=== PATIENT | female | born 1990 | race Caucasian/White ===

== ENCOUNTER → 2018-04-22 16:28 | Outpatient (CLI) | payer OTHER, SELFPAY | PROVIDERS: Visit Provider Family Medicine | DX: Z36.9 Encounter for antenatal screening, unspecified (principal); Z3A.33 33 weeks gestation of pregnancy | CPT/HCPCS: 87086 ==

== ENCOUNTER → 2018-05-07 17:07 | Outpatient (CLI) | payer OTHER, SELFPAY ==
[2018-05-08 14:08] LABS: Strep Grp B PCR NEG for Grp B Strep
== END ==
PROVIDERS: Visit Provider Family Medicine
DX: Z3A.35 35 weeks gestation of pregnancy (principal)
CPT/HCPCS: 87653

== ENCOUNTER 2018-06-07 09:36 | Inpatient (IN) | payer OTHER, SELFPAY ==
[2018-06-07] MEDS: fentaNYL 100 MCG/2 ML INJ IV ×2 (10:45→11:45)
[2018-06-07] MEDS: LACTATED RINGERS 1,000 ML 100 ML IV (10:50)
[2018-06-07 11:24] LABS: Add Manual Diff / Slide Review NO; Basophils Percent Auto 0.2 % (0-2); Eosinophils Percent Auto 0.6 % (2-4); Hematocrit 35.2 % (36-46); Hemoglobin 11.6 g/dL (12.0-16.0); Lymphocytes Percent Auto 12.7 % (25-40); Mean Corpuscular Hemoglobin 26.1 PG (26-34); Monocytes Percent Auto 3.9 % (3-14); Neutrophils Absolute Auto 13100 /uL (3000-5900); Neutrophils Percent Auto 82.6 % (50-75); Platelet Count 366 X10^3/uL (150-400); Red Blood Cell Count 4.45 X10^6/uL (4.0-5.2); Red Cell Distribution Width 15.8 % (11.6-14.8); White Blood Cell Count 15.8 X10^3/uL (4.5-11.0)
[2018-06-07 11:32] VITALS: BP 149/87
--- NOTE | 2018-06-07 12:06 | PM.HP.1 ---
History of Present Illness Date Patient Seen: 06/07/18 Time Patient Seen: 12:07 Chief complaint: observation of labor Narrative: Patient is a G1 para 0 patient has an estimated due date of 06/05/2018 consistent with early ultrasound early. That puts patient at 40 weeks and 2 7 stays. Patient states that this morning she woke up at about 530 and began to have spontaneous contractions she was able to go back to sleep and woke up with increasing contractions. Contractions were uncomfortable so she presented to the labor and delivery for. In the last 24 hr. She moves been feeling well she has had no fevers or chills headaches. She has had normal amount of swelling. No visual deficits. She has not been making any fluid. She has had some mucousy discharge. Patient established care at 11 weeks gestational age and transferred from [facility]. Her problems include varicella nonimmune rubella nonimmune obesity ventral septal defect which was being followed by intrauterine neonatology and Cardiology and possible esophageal atresia. Medications during included Celexa 30 mg a day vitamins and Zofran. During her transfer weight was 219 attending weight was 251 lb. labs are as follows. Blood type A negative antibody screen negative hematocrit 39.2 12.9 HIV negative Pap test within normal limits varicella nonimmune 1st trimester aneuploidy screen negative cell free DNA negative. 1 hr glucose 148 GBS is negative. Patient had follow-up down and at maternal Medicine for evaluation of the heart. They cannot rule out a ventral septal defect patient has a family history as well as esophageal atresia. They could not rule this as well. Patient's past medical history includes history of depression but no history of thyroid problems high blood pressure heart or kidney problems or diabetes. Patient History Family & Social History Tobacco & Substance use: Smoking Status Never smoker Meds Home Medications Medication Instructions Recorded Confirmed Type metoclopramide HCl 10 mg PO BIDP PRN 06/07/18 History Allergies Allergy/AdvReac Type Severity Reaction Status Date / Time No Known Drug Allergies Allergy Unverified 03/24/18 09:17 Exam Vital Signs (past 8 hours): - 06/07/18 11:32 Blood Pressure 149/87 H Narrative Exam Narrative: . General: Alert no apparent distress. Affect is appropriate. Shari it is uncomfortable. HEENT: Neck is supple without lymphadenopathy pupils equal round and reactive. Cardio: S1-S2 regular rate and rhythm. Respiratory: Lungs clear to auscultation. Abdomen: Gravid. Extremities: Normal deep tendon reflexes trace edema. [place]: Contractions every 3-5 minutes heart tones: heart tones 130 strip is reactive Vaginal exam 8 cm 90% effaced and 0 station Objective Labs Result Diagrams: 06/07/18 10:50 Labs: Laboratory Results - last 24 hr 06/07/18 10:50 WBC 15.8 H RBC 4.45 Hgb 11.6 L Hct 35.2 L MCV 79.0 L MCH 26.1 MCHC 33.0 RDW 15.8 H Plt Count 366 Neut % (Auto) 82.6 H Lymph % (Auto) 12.7 L [place] % (Auto) 3.9 Eos % (Auto) 0.6 L Baso % (Auto) 0.2 Neut # (Auto) 79754 H Assessment & Plan Plan: Assessment/Plan Narrative: 28-year-old G1 para 0 at 40 and 2 weeks gestational age in active labor. Reviewed records. Begin routine care. Orders are written for admission to labor and delivery floor. Epidural anesthesia as requested by the patient. Under go amniotomy. Patient's it in active labor and having good cervical change at this point. Category 1 heart tracing. GBS status is negative. Mom is mildly obese and had a slightly elevated fasting blood glucose and has been watching her diet.
--- NOTE | 2018-06-07 12:11 | P.HP_ITS ---
History of Present Illness Date Patient Seen: 06/07/18 Time Patient Seen: 12:07 Chief complaint: observation of labor Narrative: Patient is a G1 para 0 patient has an estimated due date of 2017 consistent with early ultrasound early. That puts patient at 40 weeks and 2 7 stays. Patient states that this morning she woke up at about 530 and began to have spontaneous contractions she was able to go back to sleep and woke up with increasing contractions. Contractions were uncomfortable so she presented to the labor and delivery for. In the last 24 hr. She moves been feeling well she has had no fevers or chills headaches. She has had normal amount of swelling. No visual deficits. She has not been making any fluid. She has had some mucousy discharge. Patient established care at 11 weeks gestational age and transferred from [facility]. Her problems include varicella nonimmune rubella nonimmune obesity ventral septal defect which was being followed by intrauterine neonatology and Cardiology and possible esophageal atresia. Medications during included Celexa 30 mg a day vitamins and Zofran. During her transfer weight was 219 attending weight was 251 lb. labs are as follows. Blood type A negative antibody screen negative hematocrit 39.2 12.9 HIV negative Pap test within normal limits varicella nonimmune 1st trimester aneuploidy screen negative cell free DNA negative. 1 hr glucose 148 GBS is negative. Patient had follow-up down and at maternal Medicine for evaluation of the heart. They cannot rule out a ventral septal defect patient has a family history as well as esophageal atresia. They could not rule this as well. Patient's past medical history includes history of depression but no history of thyroid problems high blood pressure heart or kidney problems or diabetes. Patient History Family & Social History Tobacco & Substance use: Smoking Status Never smoker Meds Home Medications Medication Instructions Recorded Confirmed Type metoclopramide HCl 10 mg PO BIDP PRN 06/07/18 History Allergies Allergy/AdvReac Type Severity Reaction Status Date / Time No Known Drug Allergies Allergy Unverified 03/24/18 09:17 Exam Vital Signs (past 8 hours): - 06/07/18 11:32 Blood Pressure 149/87 H Narrative Exam Narrative: . General: Alert no apparent distress. Affect is appropriate. Shari it is uncomfortable. HEENT: Neck is supple without lymphadenopathy pupils equal round and reactive. Cardio: S1-S2 regular rate and rhythm. Respiratory: Lungs clear to auscultation. Abdomen: Gravid. Extremities: Normal deep tendon reflexes trace edema. [place]: Contractions every 3-5 minutes heart tones: heart tones 130 strip is reactive Vaginal exam 8 cm 90% effaced and 0 station Objective Labs Result Diagrams: 06/07/18 10:50 Labs: Laboratory Results - last 24 hr 06/07/18 10:50 WBC 15.8 H RBC 4.45 Hgb 11.6 L Hct 35.2 L MCV 79.0 L MCH 26.1 MCHC 33.0 RDW 15.8 H Plt Count 366 Neut % (Auto) 82.6 H Lymph % (Auto) 12.7 L [place] % (Auto) 3.9 Eos % (Auto) 0.6 L Baso % (Auto) 0.2 Neut # (Auto) 61297 H Assessment & Plan Plan: Assessment/Plan Narrative: 28-year-old G1 para 0 at 40 and 2 weeks gestational age in active labor. Reviewed records. Begin routine care. Orders are written for admission to labor and delivery floor. Epidural anesthesia as requested by the patient. Under go amniotomy. Patient's it in active labor and having good cervical change at this point. Category 1 heart tracing. GBS status is negative. Mom is mildly obese and had a slightly elevated fasting blood glucose and has been watching her diet.
--- NOTE | 2018-06-07 17:46 | P.PCNOB_ITS ---
Delivery date: 06/07/18 Estimated blood loss (mL): 250 Anesthesia type: Spinal Narrative: Stage I of labor. Approximately 8 hr. During stage I of labor. Patient had good progression of her labor. She had automatic rupture of amniotic fluid. It was clear. She made good progress until complete. During stage I of labor heart tones were reassuring. She was farshad adequately without Pitocin augmentation. heart tones were category 1 during the stage I of labor. Patient received an epidural for pain relief. And eventually had conversion to a spinal because she was intolerant of pushing due to the pain. Patient had adequate pain relief with the spinal. Blood pressure was mildly elevated during stage I up to 140s. No maternal fever. Stage II of labor. Approximately an hour and a half During the stage of labor the patient's Tiffany was not working very well. heart tones were auscultated multiple times and near the end of stage I every 5 min. heart tones were reassuring throughout stage II of labor. And no appreciable decelerations were found. Patient made good progress through stage II of labor. Patient then delivered a viable male infant over intact perineum. The delivery of the head there was no nuchal cord. There is no difficulty delivering the shoulders and the body. Baby was then placed on the mother's abdomen. The cord was then cut and transected. 10 units of IM Pitocin was given. Baby was vigorous. Stage III of labor. Attention was taken to the vagina. Where there was a second-degree vaginal perineal laceration which was repaired with 2 0 chromic suture without difficulty. She had delivery of an intact placenta with three- vessel cord. Patient had 250 cc of blood loss. Patient's uterine was firm. Vital signs were stable for afterwards. Baby was resting comfortably.
[2018-06-07] MEDS: IBUPROFEN 600 MG TABLET PO (21:29)
[2018-06-08] MEDS: IBUPROFEN 600 MG TABLET PO ×3 (06:11→18:57)
[2018-06-08 06:51] LABS: Hematocrit 29.7 % (36-46); Hemoglobin 9.7 g/dL (12.0-16.0)
--- NOTE | 2018-06-08 08:45 | P.PN_ITS ---
Subjective Date Patient Seen: 06/08/18 Time Patient Seen: 08:43 Interval history: Patient did well over night. Complaints of fatigue and tiredness. Some mild uterine cramping but it is relieved with ibuprofen. She says her bleeding is well controlled. And not much. She is up out of bed and ambulating. No difficulty with urination. No bowel movement yet. Breast- feeding is going okay but with some difficulty with latching using a nipple shield. Vital signs have been stable. Exam Vital Signs (past 8 hours): Narrative Exam Narrative: General: Alert no apparent distress. Affect is appropriate. Shari it is uncomfortable. HEENT: Neck is supple without lymphadenopathy pupils equal round and reactive. Cardio: S1-S2 regular rate and rhythm. Respiratory: Lungs clear to auscultation. Abdomen: Uterus firm. Extremities: Normal deep tendon reflexes trace edema. Objective Labs Result Diagrams: 06/08/18 06:25 Labs: Laboratory Results - last 24 hr 06/07/18 06/07/18 06/08/18 10:50 10:50 06:25 WBC 15.8 H RBC 4.45 Hgb 11.6 L 9.7 L Hct 35.2 L 29.7 L MCV 79.0 L MCH 26.1 MCHC 33.0 RDW 15.8 H Plt Count 366 Neut % (Auto) 82.6 H Lymph % (Auto) 12.7 L [place] % (Auto) 3.9 Eos % (Auto) 0.6 L Baso % (Auto) 0.2 Neut # (Auto) 05308 H Blood Type A Negative Antibody Screen Negative Maternal Bleed 06/08/18 06:25 WBC RBC Hgb Hct MCV MCH MCHC RDW Plt Count Neut % (Auto) Lymph % (Auto) [place] % (Auto) Eos % (Auto) Baso % (Auto) Neut # (Auto) Blood Type Antibody Screen Maternal Bleed Negative Assessment & Plan Plan: Assessment/Plan Narrative: day 1. Status post term male infant. Doing well. Eating breast- feeding is okay. Positive urination. Bleeding is under control. Discussed control options. Discussed breast-feeding and possible tongue tie in the . Reviewed testing with mom today. Continue with vitamins ibuprofen ambulation discharge tomorrow
[2018-06-08] MEDS: LANOLIN OINT 7 GM 1 APPLIC TOP (12:38)
[2018-06-08] MEDS: HYDROCODONE/ACET 5/325 TABLET 1 TAB PO (15:45)
[2018-06-08] MEDS: RHO(D) IMMUNE GLOBULIN 1,500 UNIT SYRINGE 1500 UNIT IM (15:46)
[2018-06-08] MEDS: DOCUSATE 250 MG CAPSULE PO (18:58)
[2018-06-09] MEDS: IBUPROFEN 600 MG TABLET PO ×2 (01:47→08:21)
--- NOTE | 2018-06-09 08:01 | PM.DS.1 ---
History of Present Illness Chief complaint: observation of labor Narrative: Patient is a G1 para 0 patient has an estimated due date of 06/05/2018 consistent with early ultrasound early. That puts patient at 40 weeks and 2 7 stays. Patient states that this morning she woke up at about 530 and began to have spontaneous contractions she was able to go back to sleep and woke up with increasing contractions. Contractions were uncomfortable so she presented to the labor and delivery for. In the last 24 hr. She moves been feeling well she has had no fevers or chills headaches. She has had normal amount of swelling. No visual deficits. She has not been making any fluid. She has had some mucousy discharge. Patient established care at 11 weeks gestational age and transferred from [facility]. Her problems include varicella nonimmune rubella nonimmune obesity ventral septal defect which was being followed by intrauterine neonatology and Cardiology and possible esophageal atresia. Medications during included Celexa 30 mg a day vitamins and Zofran. During her transfer weight was 219 attending weight was 251 lb. labs are as follows. Blood type A negative antibody screen negative hematocrit 39.2 12.9 HIV negative Pap test within normal limits varicella nonimmune 1st trimester aneuploidy screen negative cell free DNA negative. 1 hr glucose 148 GBS is negative. Patient had follow-up down and at maternal Medicine for evaluation of the heart. They cannot rule out a ventral septal defect patient has a family history as well as esophageal atresia. They could not rule this as well. Patient's past medical history includes history of depression but no history of thyroid problems high blood pressure heart or kidney problems or diabetes. Discharge Providers Date of admission: 06/07/18 10:06 Consults: 06/07/18 21:20 Consult to Rental Car Deliverer Routine Comment: Discharge provider: Joseph Spring MD Summary Discharge Diagnosis: Term intrauterine Delivery of viable male infant Repair of second-degree perineal laceration Routine care Hospital Course: Patient was admitted to the hospital in labor. Had gradual progression during labor and delivery of a viable male infant. Repair of a second-degree laceration. Postoperative bleed day 1 pain was well controlled she was tolerating ambulating having normal urination working on breast-feeding vital signs were stable temperature were stable. day 2. Bleeding was well controlled. No signs of significant lower extremity edema blood pressure instability. No signs of respiratory distress and normal heart exam. Temperature and vital signs were stable mom was eating ambulating breast-feeding well Time Spent with Patient Less than 30 minutes Exam Narrative Exam Narrative: Gen.: Good historian HEENT: Pupils equal and reactive. Cardio: [S1 and S2 regular rate and rhythm no appreciable murmurs.] Respiratory: Normal respiratory effort lungs clear Abdomen: Soft nontender obese uterus is firm Extremities: Full range of motion trace edema Objective Labs Result Diagrams: 06/08/18 06:25 Labs: Laboratory Results - last 24 hr 06/08/18 06:25 Maternal Bleed Negative Discharge Plan Discharge Plan Patient Disposition: Home, Self-Care Discharge comment: Home follow up with Dr. Spring in 6 weeks for checkup Discharge Med Rec/Prescriptions Prescriptions: New hydrocodone-acetaminophen 5-325 mg Tablet 1 tab PO Q6-8H PRN (Reason: Pain, Moderate (4-6)) Qty: 20 RF: 0 docusate sodium 250 mg Capsule 250 mg PO DAILY Qty: 30 RF: 0 ibuprofen 600 mg Tablet 600 mg PO Q6HR PRN (Reason: Pain, Mild (1-3)) Qty: 30 RF: 0 Discontinued metoclopramide HCl 10 MG tablet 10 mg PO BIDP PRN (Reason: Nausea) RF: 0 Discharge Data Attending Provider: Joesph Spring Admit Date/Time: 06/07/18 10:06
--- NOTE | 2018-06-09 08:04 | P.DS_ITS ---
History of Present Illness Chief complaint: observation of labor Narrative: Patient is a G1 para 0 patient has an estimated due date of 2017 consistent with early ultrasound early. That puts patient at 40 weeks and 2 7 stays. Patient states that this morning she woke up at about 530 and began to have spontaneous contractions she was able to go back to sleep and woke up with increasing contractions. Contractions were uncomfortable so she presented to the labor and delivery for. In the last 24 hr. She moves been feeling well she has had no fevers or chills headaches. She has had normal amount of swelling. No visual deficits. She has not been making any fluid. She has had some mucousy discharge. Patient established care at 11 weeks gestational age and transferred from [facility]. Her problems include varicella nonimmune rubella nonimmune obesity ventral septal defect which was being followed by intrauterine neonatology and Cardiology and possible esophageal atresia. Medications during included Celexa 30 mg a day vitamins and Zofran. During her transfer weight was 219 attending weight was 251 lb. labs are as follows. Blood type A negative antibody screen negative hematocrit 39.2 12.9 HIV negative Pap test within normal limits varicella nonimmune 1st trimester aneuploidy screen negative cell free DNA negative. 1 hr glucose 148 GBS is negative. Patient had follow-up down and at maternal Medicine for evaluation of the heart. They cannot rule out a ventral septal defect patient has a family history as well as esophageal atresia. They could not rule this as well. Patient's past medical history includes history of depression but no history of thyroid problems high blood pressure heart or kidney problems or diabetes. Discharge Providers Date of admission: 06/07/18 10:06 Consults: 06/07/18 21:20 Consult to Ballet Dancer Routine Comment: Discharge provider: Joseph Spring MD Summary Discharge Diagnosis: Term intrauterine Delivery of viable male Repair of second-degree perineal laceration Routine care Hospital Course: Patient was admitted to the hospital in labor. Had gradual progression during labor and delivery of a viable male . Repair of a second-degree laceration. Postoperative bleed day 1 pain was well controlled she was tolerating ambulating having normal urination working on breast-feeding vital signs were stable temperature were stable. day 2. Bleeding was well controlled. No signs of significant lower extremity edema blood pressure instability. No signs of respiratory distress and normal heart exam. Temperature and vital signs were stable mom was eating ambulating breast-feeding well Time Spent with Patient Less than 30 minutes Exam Narrative Exam Narrative: Gen.: Good historian HEENT: Pupils equal and reactive. Cardio: [S1 and S2 regular rate and rhythm no appreciable murmurs.] Respiratory: Normal respiratory effort lungs clear Abdomen: Soft nontender obese uterus is firm Extremities: Full range of motion trace edema Objective Labs Result Diagrams: 06/08/18 06:25 Labs: Laboratory Results - last 24 hr 06/08/18 06:25 Maternal Bleed Negative Discharge Plan Discharge Plan Patient Disposition: Home, Self-Care Discharge comment: Home follow up with Dr. Spring in 6 weeks for checkup Discharge Med Rec/Prescriptions Prescriptions: New hydrocodone-acetaminophen 5-325 mg Tablet 1 tab PO Q6-8H PRN (Reason: Pain, Moderate (4-6)) Qty: 20 RF: 0 docusate sodium 250 mg Capsule 250 mg PO DAILY Qty: 30 RF: 0 ibuprofen 600 mg Tablet 600 mg PO Q6HR PRN (Reason: Pain, Mild (1-3)) Qty: 30 RF: 0 Discontinued metoclopramide HCl 10 MG tablet 10 mg PO BIDP PRN (Reason: Nausea) RF: 0 Discharge Data Attending Provider: Joseph Spring Admit Date/Time: 06/07/18 10:06
[2018-06-09] MEDS: DOCUSATE 250 MG CAPSULE PO (08:21)
[2018-06-09] MEDS: MEASLES,MUMPS,RUBELLA VACC/PF 0.5 ML VIAL SUBCUT (11:14)
[2018-06-09 17:43] VITALS: BP 149/87; PULSE 99; RESP 16; TEMP 37.2
== END 2018-06-09 12:00 | disposition home or self-care (01) | DRG 775 ==
PROVIDERS: Admitting Provider Family Medicine; Visit Provider Family Medicine
DX: O99.344 Other mental disorders complicating childbirth (principal); Z3A.40 40 weeks gestation of pregnancy; Z37.0 Single live birth; O70.1 Second degree perineal laceration during delivery; F32.9 Major depressive disorder, single episode, unspecified
CPT/HCPCS: 01967; 36415; 59050; 59410; 85014; 85018; 85025; 85461; 86850; 86900; 86901; G0378; G0379; J2790; J3010

== ENCOUNTER → 2018-12-10 10:54 | Outpatient (CLI) | payer OTHER, SELFPAY ==
[2018-12-10 11:27] LABS: Add Manual Diff / Slide Review NO; Basophils Absolute Auto 0 /uL (0-100); Basophils Percent Auto 0.4 % (0-2); Eosinophils Absolute Auto 100 /uL (0-450); Eosinophils Percent Auto 1.1 % (2-4); Hematocrit 38.5 % (36-46); Hemoglobin 12.7 g/dL (12.0-16.0); Lymphocytes Absolute Auto 2300 /uL (1100-4500); Lymphocytes Percent Auto 23.4 % (25-40); Mean Corpuscular Volume 78.7 fL (80-100); Monocytes Absolute Auto 500 /uL (0-900); Monocytes Percent Auto 4.8 % (3-14); Neutrophils Absolute Auto 6800 /uL (1500-7000); Neutrophils Percent Auto 70.3 % (50-75); Platelet Count 413 X10^3/uL (150-400); Red Blood Cell Count 4.89 X10^6/uL (4.0-5.2); Red Cell Distribution Width 16.8 % (11.6-14.8); White Blood Cell Count 9.7 X10^3/uL (4.5-11.0)
[2018-12-10 12:47] LABS: Appearance Urine UA CLEAR; Bilirubin Urine UA NEGATIVE (NEGATIVE); Color Urine UA YELLOW; Glucose Urine UA NEGATIVE (Negative); Ketones Urine UA NEGATIVE (NEGATIVE); Leukocyte Esterase Urine UA NEGATIVE (NEGATIVE); Nitrite Urine UA NEGATIVE (Negative); Occult Blood Urine UA NEGATIVE (Negative); Protein Urine UA NEGATIVE (Negative); Urobilinogen Urine UA 0.2 E.U./dL (0.2); pH Urine UA 7.5 (4.5-8.0)
[2018-12-10 15:37] LABS: Hepatitis B Surface Antigen NEGATIVE s/c (NEGATIVE)
[2018-12-10 15:49] LABS: HIV 1 and 2 Antibody NEGATIVE (NEGATIVE); Hep C Virus Ab w/Reflex Quant NEGATIVE s/c (NEGATIVE)
[2018-12-11 14:10] LABS: HSV 2 IGG AB < 0.90 index (< 0.90); HSV1IGG < 0.90 index (< 0.90)
[2018-12-11 14:13] LABS: Varicella IgG Antibody < 135.00 Index (< 135.00)
[2018-12-12 14:07] LABS: RPR Screen Nonreactive (Nonreactive)
== END ==
PROVIDERS: PCP Family Medicine; Visit Provider Family Medicine
DX: Z34.81 Encounter for supervision of other normal pregnancy, first trimester (principal)
CPT/HCPCS: 36415; 80055; 81003; 86695; 86696; 86703; 86787; 86803; 86850; 86900; 86901; 87077; 87086

== ENCOUNTER → 2019-01-21 16:39 | Outpatient (CLI) | payer OTHER, SELFPAY ==
[2019-02-01 10:43] LABS: AFP, Serum 18.7 ng/mL; Calc Gestational Age 15.3; Cigarette Smoker NOT GIVEN; Donated Egg N; Donor Egg Age NOT GIVEN; Estriol, Free 1.01 ng/mL; Inhibin A, Dimeric 155 pg/mL; Maternal Weight 229 lbs; Number of Fetuses 1; Previous Pregnancy Down Syndro N; hCG, MoM 2.02; hCG, Serum 65.5 IU/mL
== END ==
PROVIDERS: PCP Family Medicine; Visit Provider Family Medicine
DX: Z34.82 Encounter for supervision of other normal pregnancy, second trimester (principal); Z3A.15 15 weeks gestation of pregnancy
CPT/HCPCS: 36415; 82105; 82677; 84702; 86336

== ENCOUNTER → 2019-02-18 08:36 | Outpatient (CLI) | payer OTHER, SELFPAY ==
--- NOTE | 2019-02-18 08:39 | DI.US.S_ITS ---
PROCEDURE: US OB >= 14 WEEKS FETUS INDICATIONS: ANATOMIC SURVEY OUTSIDE/PRIOR DATING DATA: Last menstrual period (LMP): Not provided. LMP-based estimated date of delivery (AFUA): 07/13/19. First dating scan (date and location): 02/18/19. Estimated date of delivery (AFUA) from first dating scan: 07/10/19. TECHNIQUE: Real-time scanning was performed of the fetus, with image documentation and biometric measurements. Endovaginal scanning: No COMPARISON: [facility], , OB >= 14 WEEKS FETUS, 01/21/2019, 16:26. FINDINGS: General: A single living intrauterine gestation is present. Presentation: Vertex. Placenta: Placental position is anterior, without previa. Amniotic fluid index: 14.9 cm, normal range is 5-24 cm. heart rate: 158 beats per minute. Maternal cervical canal: 4.7 cm long. Normal lower limit is 2.5 cm. biometrics: Biparietal diameter: 20 weeks 3 days Head circumference: 19 weeks 5 days Abdominal circumference: 19 weeks 4 days Femur length: 20 weeks 0 days Estimated gestational age from initial scan: 19 weeks 2 days Composite gestational age from present scan: 19 weeks 5 days Estimated weight and percentile: 314 g; 76 percentile Measurement variability for biometric dating: +/- 7 days from 14 weeks to 15 weeks 6 days gestation, +/- 10 days from 16 weeks to 21 weeks 6 days gestation, +/- 2 weeks from 22 weeks to 27 weeks 6 days gestation, +/- 3 weeks for 28 weeks gestation or later. weight reference: 4500 g or EFW >90/95% is considered macrosomia or large for gestational age. EFW <10% is small for gestational age. EFW 5% or less is considered intra-uterine growth restriction. Anatomic survey: Neuro: Ventricles are non-dilated at less than 10 mm. Cisterna magna is normal at 3-11 mm. Cerebellum is normal in size and morphology. Nuchal skin fold: Normal at less than 6 mm between 14-21 weeks gestational age. Face: Not well-seen. Spine: No evidence for spina bifida. Heart: Possible ventricular septal defect noted which is suboptimally visualized. RVOT also not well-seen. Normal LVOT. Diaphragm: Diaphragm is intact. Stomach: Left-sided stomach is present. Kidneys: No hydronephrosis. Normal is less than 5 mm in 2nd trimester, less than 7 mm in 3rd trimester. Cord: 3-vessel cord has orthotopic insertion. Bladder: Normal in size. Extremities: All 4 extremities identified. IMPRESSION: 1. Single living IUP with an estimated sonographic gestational age of approximately 19 weeks and 5 days. Estimated weight is approximately [address] the fetus with the 76th percentile for gestational age. 2. Possible ventricular septal defect which is suboptimally visualized. Tertiary care referral and echocardiography recommended for further assessment of the heart. 3. face and the RVOT are not well visualized on the current study. Followup recommended. Dictated by: Jair SOLOMON Interpreted: Kalin Putnam MD on 02/18/2019 at 14:09 Approved by: Kalin Putnam M.D. on 02/18/2019 at 14:47
== END ==
PROVIDERS: PCP Family Medicine; Visit Provider Family Medicine
DX: Z34.82 Encounter for supervision of other normal pregnancy, second trimester (principal); Z3A.19 19 weeks gestation of pregnancy
CPT/HCPCS: 76811

== ENCOUNTER → 2019-04-06 11:58 | Outpatient (CLI) | payer OTHER, SELFPAY ==
[2019-04-06 13:47] LABS: Hematocrit 33.4 % (36-46); Hemoglobin 10.9 g/dL (12.0-16.0)
[2019-04-06 14:38] LABS: GTT (PREG) 1 Hour PP 50gm Dose 163 mg/dL (76-139)
== END ==
PROVIDERS: PCP Family Medicine; Visit Provider Family Medicine
DX: Z34.82 Encounter for supervision of other normal pregnancy, second trimester (principal); Z3A.23 23 weeks gestation of pregnancy
CPT/HCPCS: 36415; 82950; 85014; 85018; 86850

== ENCOUNTER → 2019-04-09 08:42 | Outpatient (CLI) | payer OTHER, SELFPAY ==
[2019-04-09 13:04] LABS: Glucose Tol Interp,Gestational INTERPRETATION
[2019-04-09 14:31] LABS: Glucose 3 Hour Gest 130 mg/dL (76-140)
[2019-04-09 14:32] LABS: Glucose 2 Hour Gest 143 mg/dL (76-155)
[2019-04-09 14:46] LABS: Glucose Fasting Gestational 79 mg/dL (76-95)
[2019-04-09 14:47] LABS: Glucose 1 Hour Gest 175 mg/dL (76-180)
== END ==
PROVIDERS: PCP Family Medicine; Visit Provider Family Medicine
DX: R73.09 Other abnormal glucose (principal)
CPT/HCPCS: 36415; 82951; 82952

== ENCOUNTER → 2019-04-16 12:23 | Outpatient (CLI) | payer OTHER, SELFPAY | PROVIDERS: PCP Family Medicine; Visit Provider Family Medicine | DX: Z34.02 Encounter for supervision of normal first pregnancy, second trimester (principal); Z3A.27 27 weeks gestation of pregnancy | CPT/HCPCS: 87086 ==

== ENCOUNTER → 2019-05-06 16:29 | Outpatient (CLI) | payer OTHER, SELFPAY | PROVIDERS: PCP Family Medicine; Visit Provider Family Medicine | DX: Z34.83 Encounter for supervision of other normal pregnancy, third trimester (principal); Z3A.30 30 weeks gestation of pregnancy | CPT/HCPCS: 87086 ==

== ENCOUNTER → 2019-05-19 16:58 | Outpatient (CLI) | payer OTHER, SELFPAY | PROVIDERS: PCP Family Medicine; Visit Provider Family Medicine | DX: Z34.83 Encounter for supervision of other normal pregnancy, third trimester (principal); Z3A.32 32 weeks gestation of pregnancy | CPT/HCPCS: 87086 ==

== ENCOUNTER 2019-06-03 14:52 | Outpatient (CLI) | payer OTHER, SELFPAY | END 2019-06-03 16:01 | disposition home or self-care (01) | LOC: LABOR 14:57 → OB 06-04 12:01 | PROVIDERS: PCP Family Medicine; Visit Provider Family Medicine | DX: Z34.93 Encounter for supervision of normal pregnancy, unspecified, third trimester (principal); Z3A.35 35 weeks gestation of pregnancy | CPT/HCPCS: 59025; G0378; G0379 ==

== ENCOUNTER → 2019-06-08 09:41 | Outpatient (CLI) | payer OTHER, SELFPAY ==
[2019-06-09 07:53] LABS: Strep Grp B PCR NEG for Grp B Strep
== END ==
PROVIDERS: PCP Family Medicine; Visit Provider Family Medicine
DX: Z34.83 Encounter for supervision of other normal pregnancy, third trimester (principal); Z3A.35 35 weeks gestation of pregnancy
CPT/HCPCS: 87653

== ENCOUNTER 2019-06-10 08:52 | Outpatient (CLI) | payer OTHER, SELFPAY ==
--- NOTE | 2019-06-10 09:51 | PM.OBTRLD ---
Visit Information Visit Information Date of evaluation: 06/10/19 Primary OB Provider: Joseph Spring On-call OB Provider: Bette Garber Reason for Evaluation: Yes non-stress test non-stress test reason: hypertension/pre-eclampsia Vital Signs Vital Signs: Blood pressure 111/63, temperature 36?, pulse of 91 PFSH Social History marital status: unmarried,living together number of children: 1 household members: significant other and children (1 ) Smoking Status: Never smoker alcohol intake: current (ON OCCASION ) substance use type: does not use Social History marital status: unmarried,living together number of children: 1 household members: significant other and children (1 ) Smoking Status: Never smoker alcohol intake: current (ON OCCASION ) substance use type: does not use Evaluation Evaluation Baseline heart rate: 130 Variability: Moderate (11-25) monitor accelerations: Present monitor decelerations: Absent Contraction Frequency (minutes): 0 Diagnosis, Plan/Disposition Final Diagnosis (1) Gestational diabetes, diet controlled: Current Visit: Yes Status: Acute (2) Gestational hypertension: Current Visit: Yes Status: Acute (3) 35 weeks gestation of : Current Visit: Yes Status: Acute Plan/Disposition Plan: Reactive nonstress with normal blood pressure and patient states blood sugar is below 100. Continue routine OB appointments and nonstress tests OB Disposition: home
--- NOTE | 2019-06-10 09:54 | P.TNLD_ITS ---
Visit Information Visit Information Date of evaluation: 06/10/19 Primary OB Provider: Joseph Spring On-call OB Provider: Bette Garber Reason for Evaluation: Yes non-stress test non-stress test reason: hyper tension/pre-eclampsia Vital Signs Vital Signs: Blood pressure 111/63, temperature 36?, pulse of 91 PFSH Social History marital status: unmarried,living together number of children: 1 household members: significant other and children (1 ) Smoking Status: Never smoker alcohol intake: current (ON OCCASION ) substance use type: does not use Social History marital status: unmarried,living together number of children: 1 household members: significant other and children (1 ) Smoking Status: Never smoker alcohol intake: current (ON OCCASION ) substance use type: does not use Evaluation Evaluation Baseline heart rate: 130 Variability: Moderate (11-25) monitor accelerations: Present monitor decelerations: Absent Contraction Frequency (minutes): 0 Diagnosis, Plan/Disposition Final Diagnosis (1) Gestational diabetes, diet controlled: Current Visit: Yes Status: Acute (2) Gestational hypertension: Current Visit: Yes Status: Acute (3) 35 weeks gestation of : Current Visit: Yes Status: Acute Plan/Disposition Plan: Reactive nonstress with normal blood pressure and patient states blood sugar is below 100. Continue routine OB appointments and nonstress tests OB Disposition: home
== END 2019-06-10 09:50 | disposition home or self-care (01) ==
LOC: OB 16:41
PROVIDERS: PCP Family Medicine; Visit Provider Family Medicine
DX: O24.410 Gestational diabetes mellitus in pregnancy, diet controlled (principal); O13.3 Gestational [pregnancy-induced] hypertension without significant proteinuria, third trimester; Z3A.35 35 weeks gestation of pregnancy
CPT/HCPCS: 59025; G0378; G0379

== ENCOUNTER 2019-06-15 14:30 | Outpatient (CLI) | payer OTHER, SELFPAY | END 2019-06-15 15:41 | disposition home or self-care (01) | LOC: LABOR 14:46 → OB 06-16 15:54 | PROVIDERS: PCP Family Medicine; Visit Provider Family Medicine | DX: O24.419 Gestational diabetes mellitus in pregnancy, unspecified control (principal); O13.3 Gestational [pregnancy-induced] hypertension without significant proteinuria, third trimester; Z3A.36 36 weeks gestation of pregnancy | CPT/HCPCS: 59025; G0378; G0379 ==

== ENCOUNTER 2019-06-23 11:56 | Outpatient (CLI) | payer OTHER, SELFPAY | END 2019-06-23 12:54 | disposition home or self-care (01) | LOC: LABOR 12:33 → OB 07-01 12:01 | PROVIDERS: PCP Family Medicine; Visit Provider Family Medicine | DX: O13.9 Gestational [pregnancy-induced] hypertension without significant proteinuria, unspecified trimester (principal); O24.410 Gestational diabetes mellitus in pregnancy, diet controlled; Z3A.37 37 weeks gestation of pregnancy; O13.3 Gestational [pregnancy-induced] hypertension without significant proteinuria, third trimester; O24.419 Gestational diabetes mellitus in pregnancy, unspecified control | CPT/HCPCS: 59025; 76815; G0378; G0379 ==

== ENCOUNTER → 2019-06-23 13:41 | Outpatient (CLI) | payer OTHER, SELFPAY ==
--- NOTE | 2019-06-23 13:42 | DI.US.S_ITS ---
PROCEDURE: US OB LIMITED INDICATIONS: GESTATIONAL DM AND HTN, ESTIMATED WEIGHT OUTSIDE/PRIOR DATING DATA: Last menstrual period (LMP): Unknown. LMP-based estimated date of delivery (AFUA): Reportedly 07/13/19. First dating scan (date and location): 02/18/19. Estimated date of delivery (AFUA) from first dating scan: 07/10/19. TECHNIQUE: Real-time scanning was performed of the fetus, with image documentation and biometric measurements. Endovaginal scanning: Not performed COMPARISON: None. FINDINGS: General: A single living intrauterine gestation is present. Presentation: Vertex. Placenta: Placental position is anterior, without previa. Amniotic fluid index: 17.7 cm, normal range is 5-24 cm. heart rate: 160 beats per minute. biometrics: Biparietal diameter: 9.6 cm, 39 weeks one day Head circumference: 33.7 cm, 38 weeks 5 days Abdominal circumference: 34.2 cm, 38 weeks one day Femur length: 7.7 cm, 39 weeks 2 days Estimated gestational age from initial scan: 37 weeks 4 days Composite gestational age from present scan: 38 weeks 6 days Estimated weight and percentile: 3536 g, 83rd percentile Measurement variability for biometric dating: +/- 7 days from 14 weeks to 15 weeks 6 days gestation, +/- 10 days from 16 weeks to 21 weeks 6 days gestation, +/- 2 weeks from 22 weeks to 27 weeks 6 days gestation, +/- 3 weeks for 28 weeks gestation or later. weight reference: 4500 g or EFW >90/95% is considered macrosomia or large for gestational age. EFW <10% is small for gestational age. EFW 5% or less is considered intra-uterine growth restriction. Other: Not applicable. IMPRESSION: Single living intrauterine fetus demonstrating expected interval growth. Estimated weight 3536 g, 83rd percentile. Dictated by: Adonay Allen M.D. on 06/23/2019 at 17:58 Approved by: Adonay Allen M.D. on 06/23/2019 at 18:01
== END ==
PROVIDERS: PCP Family Medicine; Visit Provider Family Medicine
DX: O13.9 Gestational [pregnancy-induced] hypertension without significant proteinuria, unspecified trimester (principal); O24.410 Gestational diabetes mellitus in pregnancy, diet controlled
CPT/HCPCS: 76815

== ENCOUNTER 2019-07-06 14:22 | Outpatient (CLI) | payer OTHER, SELFPAY | END 2019-07-06 15:01 | disposition home or self-care (01) | LOC: LABOR 14:31 → OB 07-07 13:55 | PROVIDERS: PCP Family Medicine; Visit Provider Family Medicine | DX: O13.3 Gestational [pregnancy-induced] hypertension without significant proteinuria, third trimester (principal); Z3A.39 39 weeks gestation of pregnancy; O24.913 Unspecified diabetes mellitus in pregnancy, third trimester | CPT/HCPCS: 59025; G0378; G0379 ==

== ENCOUNTER 2019-07-14 19:58 | Inpatient (IN) | payer OTHER, SELFPAY ==
[2019-07-14] MEDS: LACTATED RINGERS 1,000 ML 999 ML IV (20:30)
[2019-07-14 20:45] LABS: Add Manual Diff / Slide Review NO; Basophils Absolute Auto 100 /uL (0-100); Basophils Percent Auto 0.5 % (0-2); Eosinophils Absolute Auto 100 /uL (0-450); Eosinophils Percent Auto 0.4 % (2-4); Hematocrit 35.4 % (36-46); Hemoglobin 11.4 g/dL (12.0-16.0); Lymphocytes Absolute Auto 2300 /uL (1100-4500); Lymphocytes Percent Auto 13.6 % (25-40); Mean Corpuscular HGB Conc 32.3 % (30-36); Mean Corpuscular Hemoglobin 24.3 PG (26-34); Mean Corpuscular Volume 75.3 fL (80-100); Monocytes Absolute Auto 900 /uL (0-900); Monocytes Percent Auto 5.3 % (3-14); Neutrophils Absolute Auto 13700 /uL (1500-7000); Neutrophils Percent Auto 80.2 % (50-75); Platelet Count 363 X10^3/uL (150-400); Red Blood Cell Count 4.71 X10^6/uL (4.0-5.2); Red Cell Distribution Width 16.5 % (11.6-14.8)
[2019-07-14] MEDS: FENT 2MCG/ML BUPIV 0.125% EPI 200 MCG/100 ML PLAST..BAG 8 MCG EPIDURAL (20:56)
--- NOTE | 2019-07-14 23:34 | PM.HP.1 ---
History of Present Illness Date Patient Seen: 07/14/19 Time Patient Seen: 23:00 Chief complaint: OBSERVATION OF LABOR Narrative: 29-year-old G2 para 1 estimated due date of 07/13/2019 40 and 1 weeks gestational age consistent with early ultrasound. Patient comes in with spontaneous rupture of membranes and active labor. Rupture membrane at 7:30 a.m.. GBS status is negative. Patient complicated care due to gestational diabetes Rh-negative status. Patient during the last trimester had an STS. Diabetes was diet controlled. Patient had routine care and follow-up with a total weight gain of approximately 18 lb. labs show blood type A negative antibody screen negative VDRL nonreactive urine negative hepatitis-B surface antigen negative HIV negative rubella immune have CE negative varicella nonimmune 1st trimester screening and negative diabetes screen 163 and elevated 1 hour 3 hour glucose at 175 ultrasound done at 20 week showed normal anatomical study. Ultrasound at 38 weeks showed 3536 g baby at 83rd percentile. Mom's past medical history denies history of thyroid heart kidney lung or neurological conditions. Past surgical history right finger laceration as well as anxiety history. Social history no smoking they being or alcohol or recreational drugs during the Patient History Social History marital status: unmarried,living together number of children: 1 household members: significant other and children (1 ) Smoking Status: Never smoker alcohol intake: current (ON OCCASION ) substance use type: does not use Family & Social History Social History: household members significant other,children Tobacco & Substance use: Smoking Status Never smoker alcohol intake current Meds Home Medications Medication Instructions Recorded Confirmed Type No Known Home Medications 07/14/19 07/14/19 History Allergies Allergy/AdvReac Type Severity Reaction Status Date / Time No Known Drug Allergies Allergy Verified 07/14/19 21:05 Exam Vital Signs (past 8 hours): . General: Alert no apparent distress. Affect is appropriate. Shari it is uncomfortable. HEENT: Neck is supple without lymphadenopathy pupils equal round and reactive. Cardio: S1-S2 regular rate and rhythm. Respiratory: Lungs clear to auscultation. Abdomen: Gravid. Extremities: Normal deep tendon reflexes trace edema. Vaginal exam: Complete and pushing [place]: Shari regularly every 3-5 minutes with 60 minute contractions moderate and strength. heart tones: Category 2 heart rate 130 Objective Labs Result Diagrams: 07/14/19 20:35 Labs: Laboratory Results - last 24 hr 07/14/19 07/14/19 20:35 20:35 WBC 17.0 H RBC 4.71 Hgb 11.4 L Hct 35.4 L MCV 75.3 L MCH 24.3 L MCHC 32.3 RDW 16.5 H Plt Count 363 Neut % (Auto) 80.2 H Lymph % (Auto) 13.6 L [place] % (Auto) 5.3 Eos % (Auto) 0.4 L Baso % (Auto) 0.5 Neut # (Auto) 24865 H Lymph # (Auto) 2300 [place] # (Auto) 900 Eos # (Auto) 100 Baso # (Auto) 100 Blood Type A Negative Antibody Screen Negative Assessment & Plan Assessment & Plan narrative: 29-year-old G2 para 140 weeks gestational age with spontaneous rupture of membranes in active labor and pushing. heart tones have been category 1 and category 2 during the 1st stage of labor GBS status is negative. Patient received epidural in good progress. Inpatient labor and delivery orders were written for informed consents were obtained wrist and common complications of vaginal delivery reviewed.
--- NOTE | 2019-07-14 23:38 | P.HP_ITS ---
History of Present Illness Date Patient Seen: 07/14/19 Time Patient Seen: 23:00 Chief complaint: OBSERVATION OF LABOR Narrative: 29-year-old G2 para 1 estimated due date of 07/13/2019 40 and 1 weeks gestational age consistent with early ultrasound. Patient comes in with spontaneous rupture of membranes and active labor. Rupture membrane at 7:30 a.m.. GBS status is negative. Patient complicated care due to gestational diabetes Rh-negative status. Patient during the last trimester had an STS. Diabetes was diet controlled. Patient had routine care and follow-up with a total weight gain of approximately 18 lb. labs show blood type A negative antibody screen negative VDRL nonreactive urine negative hepatitis-B surface antigen negative HIV negative rubella immune have CE negative varicella nonimmune 1st trimester screening and negative diabetes scre en 163 and elevated 1 hour 3 hour glucose at 175 ultrasound done at 20 week showed normal anatomical study. Ultrasound at 38 weeks showed 3536 g baby at 83rd percentile. Mom's past medical history denies history of thyroid heart kidney lung or neurological conditions. Past surgical history right finger laceration as well as anxiety history. Social history no smoking they being or alcohol or recreational drugs during the Patient History Social History marital status: unmarried,living together number of children: 1 household members: significant other and children (1 ) Smoking Status: Never smoker alcohol intake: current (ON OCCASION ) substance use type: does not use Family & Social History Social History: household members significant other,children Tobacco & Substance use: Smoking Status Never smoker alcohol intake current Meds Home Medications Medication Instructions Recorded Confirmed Type No Known Home Medications 07/14/19 07/14/19 History Allergies Allergy/AdvReac Type Severity Reaction Status Date / Time No Known Drug Allergies Allergy Verified 07/14/19 21:05 Exam Vital Signs (past 8 hours): . General: Alert no apparent distress. Affect is appropriate. Shari it is uncomfortable. HEENT: Neck is supple without lymphadenopathy pupils equal round and reactive. Cardio: S1-S2 regular rate and rhythm. Respiratory: Lungs clear to auscultation. Abdomen: Gravid. Extremities: Normal deep tendon reflexes trace edema. Vaginal exam: Complete and pushing [place]: Shari regularly every 3-5 minutes with 60 minute contractions moderate and strength. heart tones: Category 2 heart rate 130 Objective Labs Result Diagrams: 07/14/19 20:35 Labs: Laboratory Results - last 24 hr 07/14/19 07/14/19 20:35 20:35 WBC 17.0 H RBC 4.71 Hgb 11.4 L Hct 35.4 L MCV 75.3 L MCH 24.3 L MCHC 32.3 RDW 16.5 H Plt Count 363 Neut % (Auto) 80.2 H Lymph % (Auto) 13.6 L [place] % (Auto) 5.3 Eos % (Auto) 0.4 L Baso % (Auto) 0.5 Neut # (Auto) 44745 H Lymph # (Auto) 2300 [place] # (Auto) 900 Eos # (Auto) 100 Baso # (Auto) 100 Blood Type A Negative Antibody Screen Negative Assessment & Plan Assessment & Plan narrative: 29-year-old G2 para 140 weeks gestational age with spontaneous rupture of membranes in active labor and pushing. heart tones have been category 1 and category 2 during the 1st stage of labor GBS status is negative. Patient received epidural in good progress. Inpatient labor and delivery orders were written for informed consents were obtained wrist and common complications of vaginal delivery reviewed.
--- NOTE | 2019-07-14 23:40 | P.PCN_ITS ---
Procedures Date/Time Date of procedure: 07/14/19 Time of procedure: 23:38 General Procedure description: Stage I approximately 3 hours. Patient came in labor and delivery floor with rupture membranes at 4 cm requesting an epidural which she received. She had good anesthetic results. During stage I of labor category 1 tracing as she became 9 cm she has some early decelerations which placed during category 2 vital signs were stable throughout and she was afebrile. Patient tolerated contractions good until she got to 9 cm and then became uncomfortable. Stage II of labor approximately 15 minutes. Patient pushed to deliver over inta ct perineum a viable male infant. At delivery of the head. Shoulders were impacted. Using a the ahsan Dumont maneuver the shoulder was easily dislodged and had delivery of the anterior shoulder. Baby was delivered onto the mother's abdomen. Had spontaneous cry. During stage II of labor had category 2 tracing due to some early decelerations. Mom made good progress through stage II of labor. Stage III. Delivery of intact placenta and Pitocin was given repair in the usual fashion of a first-degree midline tear with 2 0 chromic suture. Afterwards mom and baby were resting comfortably.
[2019-07-14] MEDS: OXYTOCIN 10 UNIT/ML VIAL 20 UNIT (23:52)
[2019-07-14] MEDS: METHYLERGONOVINE 0.2 MG/ML VIAL IM (23:52)
[2019-07-15] MEDS: IBUPROFEN 600 MG TABLET PO ×3 (00:53→13:47)
[2019-07-15 00:55] VITALS: BP 143/69
[2019-07-15 07:01] LABS: Hemoglobin 8.2 g/dL (12.0-16.0)
[2019-07-15] MEDS: PRENATAL VIT,CALC/IRON/FOLIC 1 TABLET 1 TAB PO (07:47)
[2019-07-15] MEDS: DOCUSATE 250 MG CAPSULE PO (07:47)
--- NOTE | 2019-07-15 08:31 | P.PN_ITS ---
Subjective Date Patient Seen: 07/15/19 Time Patient Seen: 08:30 Interval history: day 1. Doing well. Mom says she is up ambulating. His had breakfast. Hydrating well. Bleeding is now minimal. Some mild cramping which she is using ibuprofen for. Vital signs have been stable. No significant swelling. Blood pressures are well controlled. Exam Vital Signs (past 8 hours): - 07/15/19 00:55 Blood Pressure 143/69 H Narrative Exam Narrative: General: Alert no apparent distress. Affect is appropriate. Shari it is uncomfortable. HEENT: Neck is supple without lymphadenopathy pupils equal round and reactive. Cardio: S1-S2 regular rate and rhythm. Respiratory: Lungs clear to auscultation. Abdomen: Uterus firm. Extremities: Normal deep tendon reflexes trace edema. Objective Labs Result Diagrams: 07/15/19 06:45 Labs: Laboratory Results - last 24 hr 07/14/19 07/14/19 07/15/19 20:35 20:35 06:45 WBC 17.0 H RBC 4.71 Hgb 11.4 L 8.2 L Hct 35.4 L 25.0 L MCV 75.3 L MCH 24.3 L MCHC 32.3 RDW 16.5 H Plt Count 363 Neut % (Auto) 80.2 H Lymph % (Auto) 13.6 L [place] % (Auto) 5.3 Eos % (Auto) 0.4 L Baso % (Auto) 0.5 Neut # (Auto) 88416 H Lymph # (Auto) 2300 [place] # (Auto) 900 Eos # (Auto) 100 Baso # (Auto) 100 Blood Type A Negative Antibody Screen Negative Assessment & Plan Assessment & Plan narrative: Postoperative day 1. Status post vaginal delivery term 9 lb 12 oz. Mom's doing well. She had some mild bleeding. She is mildly anemic due to this. She received Pitocin and Methergine. Bleeding now was normal. Vital signs are stable. Pain control being treated with ibuprofen. Encourage breast-feeding. Ambulation. She says she would like to be potentially discharged.
[2019-07-15] MEDS: RHO(D) IMMUNE GLOBULIN 1,500 UNIT SYRINGE 1500 UNIT IM (13:47)
[2019-07-15 19:13] VITALS: BP 123/70; PULSE 74; RESP 16; TEMP 37.1
== END 2019-07-15 19:30 | disposition home or self-care (01) | DRG 807 ==
PROVIDERS: Admitting Provider Family Medicine; PCP Family Medicine; Visit Provider Family Medicine
DX: O24.420 Gestational diabetes mellitus in childbirth, diet controlled (principal); Z37.0 Single live birth; Z3A.40 40 weeks gestation of pregnancy; O66.0 Obstructed labor due to shoulder dystocia; O70.0 First degree perineal laceration during delivery
CPT/HCPCS: 01967; 36415; 59050; 59400; 82962; 85014; 85018; 85025; 85461; 86850; 86900; 86901; G0379; J2210; J2590; J2790

== ENCOUNTER → 2020-09-28 09:28 | Outpatient (CLI) | payer OTHER, MEDICAID, SELFPAY ==
[2020-09-28 11:21] LABS: HCG Quantitative /Beta subunit 63389 mIU/mL
== END ==
PROVIDERS: PCP Family Medicine; Referring Provider Family Medicine; Visit Provider Family Medicine
DX: Z34.90 Encounter for supervision of normal pregnancy, unspecified, unspecified trimester (principal)
CPT/HCPCS: 36415; 84702

== ENCOUNTER → 2020-10-04 10:38 | Outpatient (CLI) | payer OTHER, MEDICAID, SELFPAY ==
--- NOTE | 2020-10-04 10:39 | DI.US.S_ITS ---
PROCEDURE: US OB <= 14 WEEKS FETUS INDICATIONS: DATES AND VIABILITY OUTSIDE/PRIOR DATING DATA: Last menstrual period (LMP): 07/30/20. LMP-based estimated date of delivery (AFUA): 05/06/21 . First dating scan (date and location): 10/04/20, this study . Estimated date of delivery (AFUA) from first dating scan: 05/08/21 +/-5 days . TECHNIQUE: Real-time scanning was performed of the fetus and maternal pelvic organs, with image documentation. Endovaginal scanning was also performed to better visualize the fetus and maternal ovaries. COMPARISON: None. FINDINGS: Embryo: [place]-rump length of 2.4 cm correlates with a gestational age of 9 weeks 1 day, +/-5 days and cardiac activity at 178 beats per minute was observed. Measurement variability in dating: +/- 4 weeks by LMP, +/- 7 days by mean sac diameter (use before 6 weeks gestation if crown-rump length not able to be measured), +/- 5 days by crown-rump length (up to 8 weeks 6 days gestation), +/- 7 days by crown-rump length (up to 13 weeks 6 days gestation). Maternal organs: Ovaries show no abnormality but the left ovary could not be located due to bowel gas. . Limited images through the kidneys demonstrate no hydronephrosis. IMPRESSION: 9 week 1 day gestational age, viable gestation, delivery date is projected to be centered on 05/08/21. Dictated by: Nicholas Gutierrez M.D. on 10/04/2020 at 11:54 Approved by: Nicholas Gutierrez M.D. on 10/04/2020 at 11:55
== END ==
PROVIDERS: PCP Family Medicine; Referring Provider Family Medicine; Visit Provider Family Medicine
DX: Z34.81 Encounter for supervision of other normal pregnancy, first trimester (principal); Z3A.09 9 weeks gestation of pregnancy
CPT/HCPCS: 76801; 76817

== ENCOUNTER → 2020-10-21 10:47 | Outpatient (CLI) | payer OTHER, MEDICAID, SELFPAY ==
[2020-10-21 11:27] LABS: Add Manual Diff / Slide Review NO; Basophils Absolute Auto 0 /uL (0-100); Basophils Percent Auto 0.4 % (0-2); Eosinophils Absolute Auto 100 /uL (0-450); Eosinophils Percent Auto 1.5 % (2-4); Hematocrit 37.1 % (36-46); Hemoglobin 12.2 g/dL (12.0-16.0); Lymphocytes Absolute Auto 1900 /uL (1100-4500); Lymphocytes Percent Auto 24.2 % (25-40); Mean Corpuscular Hemoglobin 25.9 PG (26-34); Mean Corpuscular Volume 78.5 fL (80-100); Monocytes Absolute Auto 400 /uL (0-900); Monocytes Percent Auto 4.6 % (3-14); Neutrophils Absolute Auto 5400 /uL (1500-7000); Neutrophils Percent Auto 69.3 % (50-75); Platelet Count 339 X10^3/uL (150-400); Red Blood Cell Count 4.72 X10^6/uL (4.0-5.2); Red Cell Distribution Width 15.9 % (11.6-14.8); White Blood Cell Count 7.8 X10^3/uL (4.5-11.0)
[2020-10-21 12:30] LABS: HCG Quantitative /Beta subunit 43058 mIU/mL
[2020-10-22 09:45] LABS: RPR Screen Non Reactive (Non Reactive)
[2020-10-22 11:41] LABS: Varicella IgG Antibody <135 index (Immune >165)
[2020-10-23 16:34] LABS: Hepatitis B Surface Antigen NEGATIVE s/c (NEGATIVE); Rubella Antibody IgG 86.9 IU/mL (>15)
[2020-10-23 16:53] LABS: HIV 1 & 2 Ab/Ag 4th Gen Combo NEGATIVE (NEGATIVE); Hep C Virus Ab w/Reflex Quant NEGATIVE s/c (NEGATIVE)
== END ==
PROVIDERS: PCP Family Medicine; Referring Provider Family Medicine; Visit Provider Family Medicine
DX: Z34.81 Encounter for supervision of other normal pregnancy, first trimester (principal); Z3A.08 8 weeks gestation of pregnancy
CPT/HCPCS: 36415; 80055; 84702; 86787; 86803; 86850; 86900; 86901; 87389

== ENCOUNTER → 2020-12-01 11:32 | Outpatient (CLI) | payer OTHER, MEDICAID, SELFPAY ==
[2020-12-04 19:06] LABS: AFP, Serum 29.1 ng/mL (.); Calc Gestational Age Ultrasound (.); Estriol, Free 1.08 ng/mL (.); Inhibin A, MoM 1.05 (.); Maternal Ethnicity Caucasian (.); Maternal Weight 243 lbs (.); Number of Fetuses No (.); OSBR Risk 1 IN 10000 (.); Results Report (.); Test Results *Screen Negative* (.); hCG, MoM 1.48 (.); hCG, Serum 29629 mIU/mL (.)
== END ==
PROVIDERS: PCP Family Medicine; Referring Provider Family Medicine; Visit Provider Family Medicine
DX: Z34.82 Encounter for supervision of other normal pregnancy, second trimester (principal); Z3A.18 18 weeks gestation of pregnancy
CPT/HCPCS: 36415; 82105; 82677; 84702; 86336

== ENCOUNTER → 2020-12-20 13:41 | Outpatient (CLI) | payer OTHER, MEDICAID, SELFPAY ==
--- NOTE | 2020-12-20 13:42 | DI.US.S_ITS ---
PROCEDURE: US OB >= 14 WEEKS FETUS INDICATIONS: ANATOMY OUTSIDE/PRIOR DATING DATA: Last menstrual period (LMP): 07/30/20 . LMP-based estimated date of delivery (AFUA): 05/06/21 . First dating scan (date and location): 10/04/20 . Estimated date of delivery (AFUA) from first dating scan: 05/08/21 . TECHNIQUE: Real-time scanning was performed of the fetus, with image documentation and biometric measurements. Endovaginal scanning: Not performed COMPARISON: [facility], OB <= 14 WEEKS FETUS, 10/04/2020, 10:58. [facility], OB LIMITED, 06/23/2019, 13:56. [facility], OB >= 14 WEEKS FETUS, 02/18/2019, 9:03. FINDINGS: General: A single living intrauterine gestation is present. Presentation: Breech. Placenta: Placental position is posterior , without previa. Amniotic fluid index: 16.1 cm, normal range is 5-24 cm. heart rate: 149 beats per minute. Maternal cervical canal: 4.5 cm long. Normal lower limit is 2.5 cm. biometrics: Biparietal diameter: 4.8 cm, 20 weeks 4 days Head circumference: 17.5 cm, 20 weeks 0 days Abdominal circumference: 15.7 cm, 20 weeks 6 days Femur length: 3.5 cm, 21 weeks 0 days Estimated gestational age from initial scan: 20 weeks 1 day Composite gestational age from present scan: 20 weeks 4 days Estimated weight and percentile: 350 g, 82nd percentile Measurement variability for biometric dating: +/- 7 days from 14 weeks to 15 weeks 6 days gestation, +/- 10 days from 16 weeks to 21 weeks 6 days gestation, +/- 2 weeks from 22 weeks to 27 weeks 6 days gestation, +/- 3 weeks for 28 weeks gestation or later. weight reference: 4500 g or EFW >90/95% is considered macrosomia or large for gestational age. EFW <10% is small for gestational age. EFW 5% or less is considered intra-uterine growth restriction. Anatomic survey: Neuro: Ventricles are non-dilated at less than 10 mm. Cisterna magna is normal at 3-11 mm. Cerebellum is normal in size and morphology. Nuchal skin fold: Normal at less than 6 mm between 14-21 weeks gestational age. Face: Nose and lips, facial profile are normal. Spine: No evidence for spina bifida. Heart: 4-chambered heart is present, with normal ventricular outflow tracts. Diaphragm: Diaphragm is intact. Stomach: Left-sided stomach is present. Kidneys: No hydronephrosis. Normal is less than 5 mm in 2nd trimester, less than 7 mm in 3rd trimester. Cord: 3-vessel cord has marginal placental cord insertion 1.2 cm from the edge. Bladder: Normal in size. Extremities: All 4 extremities identified. IMPRESSION: Single living intrauterine fetus in breech presentation. Expected interval growth. Marginal placental cord insertion as above. Elsewhere, normal anatomic survey Dictated by: Adonay Allen M.D. on 12/20/2020 at 15:41 Approved by: Adonay Allen M.D. on 12/20/2020 at 15:47
== END ==
PROVIDERS: PCP Family Medicine; Referring Provider Family Medicine; Visit Provider Family Medicine
DX: Z34.82 Encounter for supervision of other normal pregnancy, second trimester (principal); Z3A.20 20 weeks gestation of pregnancy
CPT/HCPCS: 76811

== ENCOUNTER → 2021-01-30 11:10 | Outpatient (CLI) | payer OTHER, MEDICAID, SELFPAY ==
[2021-01-30 12:46] LABS: Hematocrit 31.1 % (36-46); Hemoglobin 10.3 g/dL (12.0-16.0)
[2021-01-30 13:05] LABS: GTT (PREG) 1 Hour PP 50gm Dose 156 mg/dL (76-139)
== END ==
PROVIDERS: PCP Family Medicine; Referring Provider Family Medicine; Visit Provider Family Medicine
DX: Z34.82 Encounter for supervision of other normal pregnancy, second trimester (principal); Z3A.26 26 weeks gestation of pregnancy
CPT/HCPCS: 36415; 82950; 85014; 85018; 86850

== ENCOUNTER → 2021-02-12 13:44 | Outpatient (CLI) | payer OTHER, MEDICAID, SELFPAY ==
--- NOTE | 2021-02-12 14:58 | DIET.PN ---
INITIAL GESTATIONAL DIABETES ASSESSMENT ASSESS:? Ms Rich is a 30 yof referred for gestational diabetes. Pt is . She had gestational diabetes with her 2nd . She has been monitoring her blood glucose 2-3x/day for a few weeks while taking metformin. She endorses moderate to severe GI complications since starting on metformin. She generally consumes a carb rich diet including chips, fruit, juice, cookies, ice cream, rice, and potatoes. She occasionally walks with her 2 children. She reports eagerness to keep her blood sugar and health under control as she has had a 12lb baby that involved many stress tests. She has not gained much weight during this . ? AFUA:?04/24/2021 ? WKS GESTATION:?? 28 wks ?LABS: 50g 1 hr- 156 ? MEDS: metformin 1000mg BID ? DIET:? B: eggs; occasional oatmeal; 2 toast w/ butter, coffee w/ creamer Sn: small bag of chips, apple, cookies, banana w/ pb, beef jerky D: grilled chicken/steak, veggies, starch Evening sn: 2-3 oreos, ice cream, glass of juice ? HT:? 64in ? PRE-PREG WT:? 240lb ? PRE-PREG BMI:???41.2 ? CURRENT WT: 247lb ? TOTAL WT GAIN:? 7lb EXERCISE: walking with kids NUTRITION DX 1. Altered nutrition related lab values r/t gestational diabetes as evidenced by recent labs (OGGT). INTERVENTION 1. Discussed pathophysiology of gestational diabetes and impact of hormone and nutrition/diet on blood sugar control.? Discussed fed versus non-fed state.? 2. Recommended checking fasting, pre-meal and 1hr post prandial (3x/day).? Discussed goals for glycemic control (<95 FBG, <140 1-hr PP).? 3. Discussed the effect of carbohydrates/protein/fat on blood sugar control.? Stressed importance of consistent carbohydrate intake at each meal and provided instructions for recommended servings/portions of carbohydrates/protein per meal.? Provided pt with educational material. 4. Introduced carbohydrate counting and measuring carbohydrate content via servings sizes and reading nutrition labels.? Provided handouts.? Pt will need further review 5. Discussed importance of meal timing and not going >3 hours between meals.? Provided sample meal schedule for pt.? Pt agreeable.?? 6. Discussed importance a pre- vitamin and including food sources of calcium, vitamin D, iron and folic acid for baby and mother?s nutrition support. 7. Discussed caffeine intake. Recommend no more than 200 mg/day (1 cup coffee). 8. Discussed rule of 15 for hypoglycemia. 9. Recommend patient purchase Urine Ketone strips and instructed on use and when to contact provider. 10. Recommended patient continue exercise as appropriate per PCP approval. 11. Patient may need medication management, will follow-up with plan of care at next visit after reviewing glucose results.? MONITOR/EVAL: Follow up scheduled X 1 week. Good compliance expected. Review: carb sources, carb counting, portion size, meal timing, BG log, weight.
== END ==
PROVIDERS: PCP Family Medicine; Referring Provider Family Medicine; Visit Provider Family Medicine
DX: O24.415 Gestational diabetes mellitus in pregnancy, controlled by oral hypoglycemic drugs (principal); K92.9 Disease of digestive system, unspecified; Z3A.28 28 weeks gestation of pregnancy; Z71.3 Dietary counseling and surveillance
CPT/HCPCS: G0108

== ENCOUNTER 2021-03-21 16:01 | Outpatient (CLI) | payer OTHER, MEDICAID, SELFPAY | END 2021-03-21 16:57 | disposition home or self-care (01) | LOC: LABOR 16:04 → OB 03-22 08:25 | PROVIDERS: PCP Family Medicine; Referring Provider Family Medicine; Visit Provider Family Medicine | DX: O24.419 Gestational diabetes mellitus in pregnancy, unspecified control (principal); Z3A.33 33 weeks gestation of pregnancy | CPT/HCPCS: 59025; G0378; G0379 ==

== ENCOUNTER 2021-03-29 10:03 | Outpatient (CLI) | payer OTHER, MEDICAID, SELFPAY ==
--- NOTE | 2021-03-29 13:35 | P.TNLD_ITS ---
Visit Information Visit Information Date of evaluation: 03/29/21 Comments/Additional reasons for admission: Patient here for NST due to gestational diabetes and NST was reviewed and evaluated which was reactive. Blood pressure was stable. Continue weekly NSTs until delivery [facility] Medical History 35 weeks gestation of (~2017) Anxiety (~2017) Gestational diabetes, diet controlled (~2017) Gestational hypertension (~2018) Laceration of right little finger with tendon involvement (~2004) Left knee tendonitis Obesity Family History Father Cancer Mother Stroke Grandmother Dementia Macular degeneration Grandfather Stroke Grandmother Cancer Crohn disease Grandfather Cancer Sister Cancer Social History marital status: unmarried,living together number of children: 1 household members: significant other and children (1 ) lives independently: No caregiver/support person: No housing: house pets and animals: Yes (1 dog, 1 cat. 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 ) substance use type: does not use during the past year weight has: remained stable caffeine: No Type(s) of exercise: walking and yoga frequency: daily
== END 2021-03-29 11:11 | disposition home or self-care (01) ==
LOC: LABOR 10:21 → OB 04-02 06:50
PROVIDERS: PCP Family Medicine; Referring Provider Family Medicine; Visit Provider Family Medicine
DX: O24.415 Gestational diabetes mellitus in pregnancy, controlled by oral hypoglycemic drugs (principal); Z3A.34 34 weeks gestation of pregnancy
CPT/HCPCS: 59025; G0378; G0379

== ENCOUNTER → 2021-04-04 10:19 | Outpatient (CLI) | payer OTHER, MEDICAID, SELFPAY ==
[2021-04-05 11:02] LABS: Strep Grp B PCR POS for Grp B Strep
== END ==
PROVIDERS: PCP Family Medicine; Visit Provider Family Medicine
DX: Z3A.36 36 weeks gestation of pregnancy (principal)
CPT/HCPCS: 87653

== ENCOUNTER 2021-04-04 11:03 | Outpatient (CLI) | payer OTHER, MEDICAID, SELFPAY ==
--- NOTE | 2021-04-04 11:48 | PM.OBTRLD ---
Visit Information Visit Information Date of evaluation: 04/04/21 Primary OB Provider: Joseph Spring Reason for Evaluation: Yes non-stress test Comments/Additional reasons for admission: Nonstress test due to gestational diabetes. Vital signs are stable category 1 heart tracing [facility] Medical History 35 weeks gestation of (~2017) Anxiety (~2017) Gestational diabetes, diet controlled (~2017) Gestational hypertension (~2018) Laceration of right little finger with tendon involvement (~2004) Left knee tendonitis Obesity Family History Father Cancer Mother Stroke Grandmother Dementia Macular degeneration Grandfather Stroke Grandmother Cancer Crohn disease Grandfather Cancer Sister Cancer Social History marital status: unmarried,living together number of children: 1 household members: significant other and children (1 ) lives independently: No caregiver/support person: No housing: house pets and animals: Yes (1 dog, 1 cat. 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 ) substance use type: does not use during the past year weight has: remained stable caffeine: No Type(s) of exercise: walking and yoga frequency: daily Diagnosis, Plan/Disposition Plan/Disposition Plan: Category 1 tracing vital signs are stable and STs weekly ultrasound biophysical profile amniotic fluid index next week
== END 2021-04-04 11:58 | disposition home or self-care (01) ==
LOC: LABOR 11:44 → OB 04-05 10:38
PROVIDERS: PCP Family Medicine; Referring Provider Family Medicine; Visit Provider Family Medicine
DX: O24.419 Gestational diabetes mellitus in pregnancy, unspecified control (principal); Z3A.36 36 weeks gestation of pregnancy
CPT/HCPCS: 59025; 87653; G0378; G0379

== ENCOUNTER → 2021-04-10 14:02 | Outpatient (CLI) | payer OTHER, MEDICAID, SELFPAY ==
--- NOTE | 2021-04-10 14:03 | DI.US.S_ITS ---
PROCEDURE: OB >= 14 WEEKS FETUS INDICATIONS: 37 week pregancy with GDM OUTSIDE/PRIOR DATING DATA: Last menstrual period (LMP): 07/30/2020. LMP-based estimated date of delivery (AFUA): 05/06/2021. First dating scan (date and location): 10/04/2020. Estimated date of delivery (AFUA) from first dating scan: 05/08/2021. TECHNIQUE: Real-time scanning was performed of the fetus, with image documentation and biometric measurements and biophysical profile. Endovaginal scanning: Not performed COMPARISON: [facility], OB >= 14 WEEKS FETUS, 12/20/2020, 14:07. FINDINGS: General: A single living intrauterine gestation is present. Presentation: Cephalic. Placenta: Placental position is posterior, without previa. Amniotic fluid index: 10.5 cm, normal range is 5-24 cm. heart rate: 150 beats per minute. Maternal cervical canal: Not well seen. biometrics: Biparietal diameter: 9.2 cm, 37 weeks 4 days Head circumference: 31.6 cm, 35 weeks 4 days Abdominal circumference: 30 cm, 33 weeks 6 days Femur length: 7.5 cm, 38 weeks 3 days Estimated gestational age from initial scan: 36 weeks 0 days Composite gestational age from present scan: 36 weeks 3 days Estimated weight: 2746 g Measurement variability for biometric dating: +/- 7 days from 14 weeks to 15 weeks 6 days gestation, +/- 10 days from 16 weeks to 21 weeks 6 days gestation, +/- 2 weeks from 22 weeks to 27 weeks 6 days gestation, +/- 3 weeks for 28 weeks gestation or later. weight reference: 4500 g or EFW >90/95% is considered macrosomia or large for gestational age. EFW <10% is small for gestational age. EFW 5% or less is considered intra-uterine growth restriction. Biophysical profile Tone 2 Movement 2 Respiration 2 Largest pocket 2 IMPRESSION: 1. Peck living intrauterine at 36 weeks 3 days based on today's ultrasound. This is concordant with the prior dating. Cephalic position. Estimated weight 2746 g. 2. Normal placenta and amniotic fluid. 3. Normal biophysical profile. Score 8/8. Dictated by: Fuad Walden M.D. on 04/10/2021 at 17:47 Approved by: Fuad Walden M.D. on 04/10/2021 at 17:51
== END ==
PROVIDERS: PCP Family Medicine; Referring Provider Family Medicine; Visit Provider Family Medicine
DX: O24.419 Gestational diabetes mellitus in pregnancy, unspecified control (principal); Z3A.36 36 weeks gestation of pregnancy
CPT/HCPCS: 76811; 76819

== ENCOUNTER 2021-04-11 08:42 | Outpatient (CLI) | payer OTHER, MEDICAID, SELFPAY | END 2021-04-11 09:20 | disposition home or self-care (01) | LOC: LABOR 09:30 → OB 04-12 07:17 | PROVIDERS: PCP Family Medicine; Referring Provider Family Medicine; Visit Provider Family Medicine | DX: O24.415 Gestational diabetes mellitus in pregnancy, controlled by oral hypoglycemic drugs (principal); Z3A.36 36 weeks gestation of pregnancy | CPT/HCPCS: 59025; G0378; G0379 ==

== ENCOUNTER 2021-04-25 11:14 | Outpatient (CLI) | payer OTHER, MEDICAID, SELFPAY | END 2021-04-25 11:56 | disposition home or self-care (01) | LOC: LABOR 11:30 → OB 04-27 15:45 | PROVIDERS: PCP Family Medicine; Referring Provider Family Medicine; Visit Provider Family Medicine | DX: O24.419 Gestational diabetes mellitus in pregnancy, unspecified control (principal); Z3A.38 38 weeks gestation of pregnancy | CPT/HCPCS: 59025; G0378; G0379 ==

== ENCOUNTER 2021-04-30 06:47 | Inpatient (IN) | payer OTHER, MEDICAID, SELFPAY ==
--- NOTE | 2021-04-30 | PATH_ITS ---
[facility] Accession Number: [id number] . 01 Material submitted: . fallopian tube - SEGMENT BILATERAL FALLOPIAN TUBES . 01 Clinical history: . LABOR . 02 Diagnosis: Segment Bilateral Fallopian Tubes, Bilateral Tubal Ligation: Complete cross-sections of segments of fallopian tube x2. Negative for atypia or malignancy. [facility] 05/03/2021 0946 Local . 02 Electronically signed: . Kim Coburn MD, Pathologist NPI- [id number] . 01 Gross description: . The specimen is received in formalin, labeled segment bilateral fallopian tubes and consists of two fallopian tube segments measuring 1.0 cm in length by 0.7 cm in diameter and 1.5 cm in length by 0.7 cm in diameter. The serosa is jung-pink and smooth. Sectioning reveals a jung-pink mucosa an da stellate lumen measuring 0.2 cm in diameter. The specimen is entirely submitted in cassettes A1-A2. (EA:[id number]) /V 05/01/2021 1413 Local . 02 Pathologist provided ICD-10: Z30.2 . 02 CPT . 400386 Performed at: 01 [facility] [address], [place], [place] [id number] MD Ihsan Hendricks MD Phone: [phone] Performed at: 02 [facility] [address] [place], [place] [id number] MD Claudia Cason MD Phone: [phone]
--- NOTE | 2021-04-30 07:06 | P.HPOB_ITS ---
OB HPI Date/Time Date of admission: 04/30/21 Date Patient Seen: 04/30/21 Time Patient Seen: 07:09 History of Present Condition Chief complaint: LABOR : 3 Para: 2 Estimated Date of Delivery: 05/01/21 Estimated Gestational Age (weeks): 39 6/7 Narrative: Melissa Rich is a 30 year old female G3 para 2 complicated with gestational diabetes previous with mild shoulder dystocia at without complication weight of 9 lb 12 oz Rh negative varicella nonimmune and mildly elevated gestational size on 30/7 week ultrasound. Patient also stated she wanted a tubal after this and consent was obtained 30 days before. Patient comes in to the labor and delivery floor this morning with favorable cervix for labor induction for above complications. Patient states she is feeling fine today she is excited no headache blurry vision right upper quadrant pain. Some mild swelling. Some intermittent contractions. care total weight gain was approximately 15 lb. During the she was on metformin. She saw paraeducator she did her blood sugars regularly. And she says they were always good. We discussed the risks and complications of gestational diabetes and including macrosomia and concerns about increased size of baby and she is well aware of risk of mild shoulder dystocia. Reviewed induction consent form with her abduction care orders were written for questions were all answered patient and were here together at bedside. Indications Indication for induction OB: other History of Present care: good care Dating criteria: LMP confirmed by 1st trimester US Ultrasounds: normal 1st trimester US Abnormal ultrasound findings: Ultrasound on 04/10/2021 shows estimated weight of 2746 g Obstetrical complications: gestational diabetes Medical complications: none Preadmission Labs Blood type: A (-) negative -: Antibody screen: negative, Cystic fibrosis screen: unknown, GBS status: positive, HBsAG: negative, HIV: negative, HSV 1: negative, HSV 2: negative and RPR/VDLR: negative -: Chlamydia screen: not detected and Gonorrhea screen: not detected -: Rubella: immune and Varicella: not immune HCT: 10.3 HCAB: negative PAP: Normal Quad screen: Normal 1 hr GTT: 153 Evaluation Evaluation Baseline heart rate: 140 Variability: Average (6-10) monitor accelerations: Present Monitor Decelerations: Absent Status: Category l Cervical dilation (cm): 3 Cervical effacement (%): 70 station: -2 [facility] Medical History 35 weeks gestation of (~2017) Anxiety (~2017) Gestational diabetes, diet controlled (~2017) Gestational hypertension (~2018) Laceration of right little finger with tendon involvement (~2004) Left knee tendonitis Obesity Family History Father Cancer Mother Stroke Grandmother Dementia Macular degeneration Grandfather Stroke Grandmother Cancer Crohn disease Grandfather Cancer Sister Cancer Social History marital status: unmarried,living together number of children: 1 household members: significant other and children (1 ) lives independently: No caregiver/support person: No housing: house pets and animals: Yes (1 dog, 1 cat. 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 ) substance use type: does not use during the past year weight has: remained stable caffeine: No Type(s) of exercise: walking and yoga frequency: daily Meds Home Medications and Allergies Home Medications Medication Instructions Recorded Confirmed Type prenat.vits,kvng,tqu-euyu-qeqms 1 tab PO DAILY 09/21/20 04/25/21 History Blood glucose monitor #1 ea NS 01/31/21 04/25/21 Rx Test strips and lancets #100 ea 01/31/21 04/25/21 Rx metformin 500 mg tablet 500 mg PO BID #60 tab 01/31/21 04/25/21 Rx Allergies Allergy/AdvReac Type Severity Reaction Status Date / Time No Known Drug Allergies Allergy Verified 04/25/21 09:46 Exam Vital Signs (past 8 hours): . General: Alert no apparent distress. Affect is appropriate. Shari it is uncomfortable. HEENT: Neck is supple without lymphadenopathy pupils equal round and reactive. Cardio: S1-S2 regular rate and rhythm. Respiratory: Lungs clear to auscultation. Abdomen: Gravid. Extremities: Normal deep tendon reflexes trace edema. heart tones: [Good heart tones 130s to 140s reactive strip.] Assessment and Plan Assessment and Plan Assessment and Plan narrative: 30-year-old female G3 para 2 39 weeks gestational age for induction of labor due to gestational diabetes previous had baby weight of 9 lb 12 oz. Patient is GBS positive. Reviewed induction with patient. Patient's cervix is favorable for induction today with Pitocin. Will go ahead and start with IV antibiotics for GBS status positive started on Pitocin. And rupture of membranes when indicated after contractions began. Patient is anticipating a tubal ligation. Center abduction orders were reviewed and consents obtained.
[2021-04-30] MEDS: OXYTOCIN PREMIX 30 UNIT/500 ML PLAST..BAG IV (07:58)
[2021-04-30] MEDS: PENICILLIN G POTASSIUM 5,000,000 UNIT in DEXTROSE 5% IN WATER 250 ML IV (07:58)
[2021-04-30] MEDS: LACTATED RINGERS 1,000 ML 100 ML IV ×3 (07:58→20:00)
[2021-04-30 08:23] LABS: Add Manual Diff / Slide Review NO; Basophils Absolute Auto 0 /uL (0-100); Basophils Percent Auto 0.4 % (0-2); Eosinophils Absolute Auto 100 /uL (0-450); Eosinophils Percent Auto 1.3 % (2-4); Hematocrit 29.2 % (36-46); Hemoglobin 9.4 g/dL (12.0-16.0); Lymphocytes Absolute Auto 2000 /uL (1100-4500); Lymphocytes Percent Auto 19.5 % (25-40); Mean Corpuscular HGB Conc 32.1 % (30-36); Mean Corpuscular Hemoglobin 23.8 PG (26-34); Mean Corpuscular Volume 74.1 fL (80-100); Monocytes Absolute Auto 600 /uL (0-900); Monocytes Percent Auto 6.2 % (3-14); Neutrophils Absolute Auto 7400 /uL (1500-7000); Neutrophils Percent Auto 72.6 % (50-75); Platelet Count 348 X10^3/uL (150-400); Red Blood Cell Count 3.94 X10^6/uL (4.0-5.2); White Blood Cell Count 10.3 X10^3/uL (4.5-11.0)
[2021-04-30 09:15] LABS: COVID19 - ADMIT (NP swab/PCR) Negative (Negative)
--- NOTE | 2021-04-30 10:19 | PM.OBPNLAB ---
Date/Time Date Patient Seen: 04/30/21 Time Patient Seen: 10:19 Pain Control Pain control: tolerating well Pelvic Exam Dilation (cm): 3 Effacement (%): 70 Amniotic membrane status: Ruptured Comments: Amniotomy of clear fluid Contractions Contractions on admission: irregular Monitor mode: External Pitocin rate (mU/min): 12 Contraction frequency (min): 5 Contraction pattern: Irregular Status status: Category l Heart Rate Baseline: 145 Monitor Accelerations: Present Monitor Decelerations: Absent Monitor Variability: Moderate Assessment and Plan Assessment: induction ongoing Plan: continuous present management Comments: Amniotomy clear fluid. 3 cm dilated 70% effaced midposition soft. On Pitocin. Patient's contractions are starting to get uncomfortable. Category 1 heart tracing.
[2021-04-30] MEDS: FENT 2MCG/ML BUPIV 0.125% EPI 200 MCG/100 ML PLAST..BAG 12 MCG EPIDURAL ×2 (11:00→15:39)
--- NOTE | 2021-04-30 11:09 | PM.AN.REGBLK ---
Regional Block Pre-procedure Procedure: Continuous Lumbar Epidural for L&D Attending OB provider: Joseph Spring PMH/ROS narrative: gestational DM, gestational HTN, h/o >9# baby with shoulder dystocia h/o anxiety, morbid obesity Hx: No personal or family history of anesthesia problems. (Patient relates two episodes of significantly delayed emergence, believes this is 2/2 her being sensitive to medications.) PSH/Anesthesia history narrative: previous epidurals (both x2 although chart for 2019 says a single placement with a chloroprocaine bolus) without effect. Says spinal after epidural for first worked some but baby came too fast. Exam narrative: MP2, RRR, CTAB ASA Class: III Labs: Hct 29.2 % (36-46) L 04/30/21 07:45 Plt Count 348 X10^3/uL (150-400) 04/30/21 07:45 Medications: Current Medications Generic Name Dose Route Start Last Admin Trade Name Freq PRN Reason Stop Dose Admin Carboprost Tromethamine 250 mcg 04/30/21 07:15 Carboprost 250 Mcg/Ml Ampul IM Q90M PRN Bleeding Lactated Ringer's 1,000 mls @ 100 mls/hr 04/30/21 07:15 04/30/21 10:42 Lactated Ringers IV 100 mls/hr CONT JOSEPHINE Administration Oxytocin/Lactated Ringer's 30 unit in 500 mls @ 200 mls/hr 04/30/21 07:15 Oxytocin Premix IV CONT PRN Bleeding Protocol Tranexamic Acid 1,000 mg/ 100 mls @ 200 mls/hr 04/30/21 07:15 Sodium Chloride IV NOW PRN Bleeding Oxytocin/Lactated Ringer's 30 unit in 500 mls @ 3 mls/hr 04/30/21 07:15 04/30/21 07:58 Oxytocin Premix IV 3 milliunit/min TITRATE JOSEPHINE 3 mls/hr Administration Protocol 3 MILLIUNIT/MIN Penicillin G Potassium 3,000,000 unit in 50 mls @ 100 mls/hr 04/30/21 11:30 Penicillin G Potassium IV Q4H JOSEPHINE Methylergonovine Maleate 0.2 mg 04/30/21 07:15 Methylergonovine 0.2 Mg/Ml Vial IM NOW PRN Bleeding Methylergonovine Maleate 0.2 mg 04/30/21 07:15 Methylergonovine 0.2 Mg Tablet PO Q6HR PRN Heavy Bleeding Misoprostol 1,000 mcg 04/30/21 07:15 Misoprostol 200 Mcg Tablet AR NOW PRN Bleeding Misoprostol 400 mcg 04/30/21 07:15 Misoprostol 200 Mcg Tablet SL NOW PRN Bleeding Misoprostol 800 mcg 04/30/21 07:15 Misoprostol 200 Mcg Tablet AR NOW PRN Bleeding Ondansetron HCl 4 mg 04/30/21 07:15 Ondansetron 4 Mg/2 Ml Inj IV Q4HR PRN Nausea And Vomiting Oxytocin 10 unit 04/30/21 07:15 Oxytocin 10 Unit/Ml Vial IM NOW PRN Bleeding Allergies: Allergies Allergy/AdvReac Type Severity Reaction Status Date / Time No Known Drug Allergies Allergy Verified 04/25/21 09:46 Procedure Insertion date: 04/30/21 Insertion time: 10:51 Prep/Local: betadine x3 (chloroprep) and 1% lidocaine Interspace: L4-5 Patient position: sitting Needle: 18 gauge Sheila Loss of resistance with: saline CIELO at (cm): 7 Catheter placed at SKIN (cm): 12 Catheter in SPACE (cm): 5 Insertion: Yes CSF Initial Medications TEST DOSE: 1.5% lidocaine with epinephrine 1:200k (mL): 5 BOLUS DOSE (mL): 2 BOLUS DOSE med: other (10mcg fentanyl intrathecally, 90mcg fentanyl via epidural catheter) Infusion INFUSION: 0.0625% bupivacaine and with fentanyl 2 mcg/mL Initial rate (mL/hr): 12 Subsequent interventions: 14:46- increased pain/pressure, using boluses otherwise working well - bolus 0.25% bupivicaine 5mL given. 15:50- pushing, baby is posterior (per MD), feeling more pressure. Bolus given 5mL 0.25% bupivicaine. 16:20- patient continues to be intolerant of pushing, MD asks for anything possible to get her comfortable enough to push. Fentanyl 100mcg and 20mL 2% chloroprocaine given via epidural. Post-procedure Anesthesia time START: 10:31 Anesthesia time END: 17:21 (to ) Post-procedure Anesthesia Assessment: No Anesthesia complications
[2021-04-30] MEDS: PENICILLIN G POTASSIUM 3,000,000 UNIT/50 ML FROZ.PIGGY 100 UNIT IV ×2 (11:40→15:39)
--- NOTE | 2021-04-30 16:45 | PM.OBPNLAB ---
Date/Time Date Patient Seen: 04/30/21 Time Patient Seen: 15:45 Pain Control Pain control: tolerating well and epidural Pelvic Exam Dilation (cm): 10 Effacement (%): 100 station: 0 Amniotic membrane status: Ruptured Contractions Contractions on admission: none Monitor mode: External Pitocin rate (mU/min): 12 Contraction frequency (min): 5 Contraction pattern: Irregular Contraction intensity: Strong/Firm Status status: Category ll Heart Rate Baseline: 140 Monitor Accelerations: Present Monitor Decelerations: Absent Monitor Variability: Moderate Assessment and Plan Comments: Started pushing. Patient with moderate amount of discomfort. Epidural bolused. 0 to +1 station. Previous baby is mom pushed small amount of time. Question position of fetus.
--- NOTE | 2021-04-30 16:47 | P.PNOB_ITS ---
Date/Time Date Patient Seen: 04/30/21 Time Patient Seen: 16:47 Pelvic Exam Dilation (cm): 10 Effacement (%): 100 station: 0 Amniotic membrane status: Ruptured Contractions Monitor mode: External Contraction frequency (min): 5 Contraction pattern: Irregular Contraction intensity: Strong/Firm Status status: Category ll Assessment and Plan Comments: Still 0 to +1 station. Pain is adequately controlled now. Question position baby. 0 P or OT. Discussed case with OB java application developer who examined the patient. Try to do some repositioning on effective. heart tones are doing well. Discussed with mom and about concerns about no progress with affect pushing over 1 hour. Question position of baby. Think to high for placement of vacuum or forceps. Discussed operative delivery options which mom is in agreement for. Discussed risks benefits and common complications of C- section delivery. We discussed the potential injury to bladder bowel bleeding or infection. If needed be mom would be okay with a blood transfusion. Hemoglobin is 9.4. Consent was obtained after review of risks benefits and common complications of the surgical procedure.
[2021-04-30] MEDS: CEFAZOLIN 1 GM VIAL 2 GM IV (17:35)
--- NOTE | 2021-04-30 17:44 | SUR.OPER ---
Supine on Padded OR bed, head on pillow, safety belt at thigh, arms secured on padded arm boards at <90 degrees abduction. Bump under right buttock. Legs uncrossed with pillow under knees, gel pad to heels, tape over blanket to lower legs.
--- NOTE | 2021-04-30 17:51 | SUR.OPER ---
VIABLE FEMALE INFANT DELIVERED AT 1754. CORD BLOOD AND PLACENTA TO OB WITH RN.
[2021-04-30] MEDS: LACTATED RINGERS 1,000 ML 120 ML IV (18:13)
[2021-04-30 19:06] VITALS: BP 130/43; PULSE 97; RESP 29; TEMP 37.3; O2SAT 100
[2021-04-30 19:11] VITALS: BP 137/65; PULSE 85; RESP 18; O2SAT 97
--- NOTE | 2021-04-30 19:11 | P.PCN_ITS ---
Procedures Date/Time Date of procedure: 04/30/21 Time of procedure: 19:12 General Procedure description: Procedure: Lower segment transverse section with bilateral tubal ligation Consent: Verbal and written informed consent were obtained from the patient placed on the chart. Indications: 30-year-old G3 para 2396 7th weeks stage II arrest due to macrosomia and direct OPP position Findings: Normal uterus normal ovaries Female Apgars 8 and 9 weight 9 lb 11 oz Anesthesia: Epidural Surgeon: Dr. Joseph Spring Garbage Truck Driver: Dr. Nadia greenwood Estimated blood loss: 500 mL Drains: Crowell to gravity. IV fluids: 1800 cc Description of procedure: The patient was brought to the operating room after her spinal epidural, preparation, and Crowell had been performed. The abdomen was prepped and draped in tested for for analgesia. When it was found to be adequate, a lower abdominal Pfannenstiel incision was made with first with a knife and cared down to the fascia with a second knife. The fascia was incised in the midline and extended laterally with a knife. Bleeding points were clamped with hemostats and Bovie coagulated. The rectus muscles were by blunt dissection. The rectus muscles were divided in the midline and the peritoneum was grasped with hemostats and carefully entered with Brantley scissors. The incision was extended bilaterally. The bladder blade was then placed. The vesicoperitoneum was grasped with smooth pickups, entered with Metzenbaum scissors, and extended laterally. The bladder flap was created by gently blunt dissection and placed behind the bladder blade. The lower uterine segment was noted to be thin was carefully incised with the scalpel and extended laterally with the fingers. A live infant was found to be in the direct OP position. The head was then easily elevated with the hand. Head was delivered and the body without significant difficulty. The baby was then suctioned and cried immediately, and was handed to the waiting attendant. The placenta was delivered manually. The uterus was explored with a wet lap sponge and found to be clear membranes. The uterus was then exteriorized. The first layer of the uterine closure was with running locking #1 chromic catgut suture. The second layer with an imbricating #1 chromic catgut suture. Hemostasis was carefully checked and found to be satisfactory. Then attention was taken to the bilateral fallopian tubes. Fallopian tubes were easily identified. The fallopian tubes were then tightened the modified Ileana fashion. The tubes were sent to pathology. The uterus was then placed back in the abdomen. To 2 for than expected for bleeding. The bladder flap was closed with a running 2-0 chromic catgut suture. The fallopian tubes and ovaries were inspected and to be found to have no significant bleeding.. After sponge and needle counts were found to be correct the peritoneum was closed with 2-0 chromic catgut suture. Rectus muscles were approximated in the lower midline. The fascia was closed with a 2 running 0 Vicryl from lateral to midline. The subcutaneous tissue was approximated with interrupted 2.0 plain gut. Bleeding points were Bovie and coagulated. The subcutaneous tissue was approximated with 3.0 plain gut suture. The skin was closed with 4-0 running subcuticular stitch. Urinary output was adequate and normal patient left to the recovery room in good condition.
[2021-04-30] MEDS: fentaNYL 100 MCG/2 ML INJ IV (19:24)
[2021-04-30 19:26] VITALS: BP 135/71; PULSE 84; RESP 20; O2SAT 98
[2021-04-30 19:31] VITALS: BP 132/73; PULSE 84; RESP 18; TEMP 37.2; O2SAT 98
[2021-05-01] MEDS: KETOROLAC 30 MG/ML VIAL IV ×3 (01:10→13:21)
[2021-05-01] MEDS: OXYCODONE/ACETAMINOPHEN 5/325 TABLET 2 TAB PO ×4 (06:09→20:07)
[2021-05-01 06:29] LABS: Add Manual Diff / Slide Review NO; Basophils Absolute Auto 0 /uL (0-100); Basophils Percent Auto 0.3 % (0-2); Eosinophils Absolute Auto 100 /uL (0-450); Eosinophils Percent Auto 0.4 % (2-4); Hematocrit 23.1 % (36-46); Hemoglobin 7.4 g/dL (12.0-16.0); Lymphocytes Absolute Auto 2200 /uL (1100-4500); Lymphocytes Percent Auto 14.7 % (25-40); Mean Corpuscular Hemoglobin 23.5 PG (26-34); Mean Corpuscular Volume 73.3 fL (80-100); Monocytes Absolute Auto 800 /uL (0-900); Monocytes Percent Auto 5.6 % (3-14); Neutrophils Absolute Auto 11800 /uL (1500-7000); Platelet Count 330 X10^3/uL (150-400); Red Blood Cell Count 3.15 X10^6/uL (4.0-5.2); White Blood Cell Count 14.9 X10^3/uL (4.5-11.0)
--- NOTE | 2021-05-01 06:51 | PM.PN.1 ---
Subjective Subjective Date Patient Seen: 05/01/21 Time Patient Seen: 06:51 Interval history: Patient approximately a 12 hours patch status post . She did well overnight. No significant concerns with pain at this point. She has been getting Toradol and some oral Percocet. She has not been up out of bed yet. She is working on . Overnight vital signs have been stable she is afebrile. Vaginal bleeding has been anticipated. No complaints of headache right upper quadrant pain blurry vision. She complains of some mild incisional pain and a fundal pain but otherwise doing well. Exam Vital Signs (past 8 hours): Oxygen Delivery Method Room Air Narrative Exam Narrative: General: Alert no apparent distress. Affect is appropriate. Shari it is uncomfortable. HEENT: Neck is supple without lymphadenopathy pupils equal round and reactive. Cardio: S1-S2 regular rate and rhythm. Respiratory: Lungs clear to auscultation. Abdomen: Uterus firm. Incision clean dry and intact. Extremities: Normal deep tendon reflexes trace edema. Objective Labs Result Diagrams: 05/01/21 06:15 Labs: Laboratory Results - last 24 hr 04/30/21 04/30/21 04/30/21 07:45 07:45 07:45 WBC 10.3 RBC 3.94 L Hgb 9.4 L Hct 29.2 L MCV 74.1 L MCH 23.8 L MCHC 32.1 RDW 17.0 H Plt Count 348 Neut % (Auto) 72.6 Lymph % (Auto) 19.5 L Bryan % (Auto) 6.2 Eos % (Auto) 1.3 L Baso % (Auto) 0.4 Neut # (Auto) 7400 H Lymph # (Auto) 2000 Bryan # (Auto) 600 Eos # (Auto) 100 Baso # (Auto) 0 SARS-CoV-2 (PCR) Negative Blood Type A Negative Antibody Screen Negative 05/01/21 06:15 WBC 14.9 H RBC 3.15 L Hgb 7.4 L Hct 23.1 L MCV 73.3 L MCH 23.5 L MCHC 32.0 RDW 17.0 H Plt Count 330 Neut % (Auto) 79.0 H Lymph % (Auto) 14.7 L Bryan % (Auto) 5.6 Eos % (Auto) 0.4 L Baso % (Auto) 0.3 Neut # (Auto) 86036 H Lymph # (Auto) 2200 Bryan # (Auto) 800 Eos # (Auto) 100 Baso # (Auto) 0 SARS-CoV-2 (PCR) Blood Type Antibody Screen [facility] Medical History 35 weeks gestation of (~2017) Anxiety (~2017) Gestational diabetes, diet controlled (~2017) Gestational hypertension (~2018) Laceration of right little finger with tendon involvement (~2004) Left knee tendonitis Obesity Family History Father Cancer Mother Stroke Grandmother Dementia Macular degeneration Grandfather Stroke Grandmother Cancer Crohn disease Grandfather Cancer Sister Cancer Social History marital status: unmarried,living together number of children: 1 household members: significant other and children (1 ) lives independently: No caregiver/support person: No housing: house pets and animals: Yes (1 dog, 1 cat. 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 ) substance use type: does not use during the past year weight has: remained stable caffeine: No Type(s) of exercise: walking and yoga frequency: daily Assessment & Plan Assessment & Plan narrative: Postoperative day 1. Status post for stage II arrest malposition baby's weight 4460 g. Plan for today. Patient's pain is adequately controlled blood pressure vital signs are stable hemoglobin is 7.6 started out at 9.6. A little bit anemic. Will monitor closely for this of blood loss is anticipated. Some mild fundal pain. Incision is clean dry and intact. Today will be the plan to remove SCDs if ambulating remove Crowell catheter. Advanced diet as tolerated Hep-Lock IV and moved to oral pain medication.
[2021-05-01 07:34] LABS: HIV 1 & 2 Ab/Ag 4th Gen Combo NEGATIVE (NEGATIVE)
[2021-05-01] MEDS: FERROUS SULFATE 325 MG TABLET PO (08:33)
[2021-05-01] MEDS: PRENATAL VIT,CALC/IRON/FOLIC 1 TABLET 1 TAB PO (08:33)
[2021-05-01] MEDS: DOCUSATE 250 MG CAPSULE PO (08:33)
[2021-05-01] MEDS: IBUPROFEN 600 MG TABLET PO (20:07)
[2021-05-02 00:42] LABS: HBsAg Screen Negative (Negative); Hepatitis A Antibody IgM Negative (Negative); Hepatitis B Core Antibody IgM Negative (Negative); Hepatitis C Antibody <0.1 s/co ratio (0.0-0.9)
[2021-05-02] MEDS: IBUPROFEN 600 MG TABLET PO ×2 (02:01→08:16)
[2021-05-02] MEDS: OXYCODONE/ACETAMINOPHEN 5/325 TABLET 2 TAB PO ×2 (02:01→08:17)
[2021-05-02] MEDS: RHO(D) IMMUNE GLOBULIN 1,500 UNIT SYRINGE 1500 UNIT IM (02:01)
--- NOTE | 2021-05-02 07:54 | PM.DS.1 ---
History of Present Illness History of Present Illness Chief complaint: LABOR Discharge Providers Provider Date of admission: 04/30/21 06:47 Discharge Date: 05/02/21 Primary care physician: Joseph Spring MD Consults: 04/30/21 20:07 Consult to Table Games Floor Supervisor Routine Comment: Discharge provider: Joseph Spring MD Summary Hospital Course Discharge Diagnosis: 30-year-old female G3 now para 3 status post section for stage II arrest and malposition Bilateral tubal ligation Routine care Postoperative anemia Hospital Course: Patient was admitted the hospital for induction of labor. Patient had good labor progression with stage II resting malposition. Patient had with bilateral tubal night patient on postoperative day 1 had her Crowell catheter removed IV hep-locked she was ambulating tolerating general diet. Postoperative day 2. Had good urination pain was well controlled with oral pain medication bleeding was doing well patient was breast-feeding. She was ambulating. Had no headache right upper quadrant pain blurry vision. No incisional pain discomfort or drainage. Exam Vital Signs (past 8 hours): Oxygen Delivery Method Room Air Narrative Exam Narrative: General: Alert no apparent distress. Affect is appropriate. Shari it is uncomfortable. HEENT: Neck is supple without lymphadenopathy pupils equal round and reactive. Cardio: S1-S2 regular rate and rhythm. Respiratory: Lungs clear to auscultation. Abdomen: Uterus firm. Incision clean dry and intact. Extremities: Normal deep tendon reflexes trace edema. Objective Labs Result Diagrams: 05/01/21 06:15 Labs: Laboratory Results - last 24 hr 05/01/21 06:15 Hepatitis A IgM Ab Negative Hep Bs Antigen Negative Hep B Core IgM Ab Negative Hepatitis C Antibody <0.1 Hep C Ab Signal/Cutoff Comment [facility] Medical History 35 weeks gestation of (~2017) Anxiety (~2017) Gestational diabetes, diet controlled (~2017) Gestational hypertension (~2018) Laceration of right little finger with tendon involvement (~2004) Left knee tendonitis Obesity Family History Father Cancer Mother Stroke Grandmother Dementia Macular degeneration Grandfather Stroke Grandmother Cancer Crohn disease Grandfather Cancer Sister Cancer Social History marital status: unmarried,living together number of children: 1 household members: significant other and children (1 ) lives independently: No caregiver/support person: No housing: house pets and animals: Yes (1 dog, 1 cat. 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 ) substance use type: does not use during the past year weight has: remained stable caffeine: No Type(s) of exercise: walking and yoga frequency: daily Discharge Plan Discharge Plan Patient Disposition: Home Discharge orders & Medications Prescriptions: New oxycodone-acetaminophen 5-325 mg Tablet 2 tab PO Q4H PRN (Reason: Pain, Severe (7-10)) Qty: 30 RF: 0 ibuprofen [IBU] 600 mg tablet 600 mg PO Q8H PRN (Reason: fever or pain) Qty: 30 RF: 0 Prenatabs Rx 29 mg iron- 1 mg Tablet 1 tab PO DAILY Qty: 90 RF: 2 docusate sodium [Colace] 100 mg capsule 100 mg PO BID Qty: 20 RF: 0 ferrous gluconate 236 mg (27 mg iron) tablet 236 mg PO DAILY Qty: 30 RF: 0 Continued prenat.vits,kvng,[id number]-xfde-[id number] Tablet 1 tab PO DAILY RF: 0 No Action (DME) Blood glucose monitor See Rx Instructions .Route .MEDSUPPLY Qty: 1 RF: 0 (DME) Test strips and lancets See Rx Instructions .Route .MEDSUPPLY Qty: 100 RF: 3 Follow up/Referrals: Joseph Spring MD [Primary Care Provider] - Discharge Health Status Multidrug resistant organism: No MDRO Diet/Activity/Treatments Diet: Diet as Tolerated Activity: As tolerated Skin/Wound/Dressing Care Report to your healthcare provider any signs of infection, such as:: chills, fever, night sweats, increased pain, unusual drainage and unusual redness Visit Report/Discharge Packet Visit Report Forms: Patient Portal/API, Stroke Signs & Symptoms Discharge Data Primary Care Provider: Joseph Spring
[2021-05-02] MEDS: FERROUS SULFATE 325 MG TABLET PO (08:16)
[2021-05-02] MEDS: DOCUSATE 250 MG CAPSULE PO (08:16)
[2021-05-02 08:32] VITALS: BP 132/73; PULSE 84; RESP 18; TEMP 37.2
== END 2021-05-02 10:15 | disposition home or self-care (01) | DRG 540 ==
PROVIDERS: Admitting Provider Family Medicine; PCP Family Medicine; Referring Provider Family Medicine; Visit Provider Family Medicine
PROC: 10D00Z1 Extraction of Products of Conception, Low, Open Approach (ICD-10-PCS; CPT 59514; principal; 2021-04-30 17:30)
DX: O24.425 Gestational diabetes mellitus in childbirth, controlled by oral hypoglycemic drugs (principal); Z30.2 Encounter for sterilization; Z3A.39 39 weeks gestation of pregnancy; Z37.0 Single live birth; O99.824 Streptococcus B carrier state complicating childbirth; O32.8XX0 Maternal care for other malpresentation of fetus, not applicable or unspecified; O66.2 Obstructed labor due to unusually large fetus; O62.1 Secondary uterine inertia; O99.02 Anemia complicating childbirth; D64.9 Anemia, unspecified; Z20.822 Contact with and (suspected) exposure to COVID-19
CPT/HCPCS: 01967; 36415; 59050; 59514; 80074; 85025; 85461; 86850; 86900; 86901; 87389; 87635; C9803; G0379; J0690; J1885; J2274; J2405; J2540; J2590; J2704; J2790; J3010

== ENCOUNTER → 2024-05-08 12:06 | Outpatient (CLI) | payer OTHER, MEDICAID, SELFPAY | PROVIDERS: PCP Family Medicine; Visit Provider Physician Assistant Surgical | DX: J02.9 Acute pharyngitis, unspecified (principal) | CPT/HCPCS: 87070 ==

== ENCOUNTER → 2024-06-24 14:22 | Outpatient (CLI) | payer OTHER, MEDICAID, SELFPAY ==
[2024-06-24 15:25] LABS: Appearance Urine UA CLEAR; Bilirubin Urine UA NEGATIVE (NEGATIVE); Color Urine UA YELLOW; Glucose Urine UA NEGATIVE (Negative); Ketones Urine UA NEGATIVE (NEGATIVE); Leukocyte Esterase Urine UA 3+ (NEGATIVE); Nitrite Urine UA NEGATIVE (Negative); Occult Blood Urine UA 2+ (Negative); Protein Urine UA NEGATIVE (Negative); Specific Gravity Urine UA 1.015 (1.000-1.035); Urobilinogen Urine UA 0.2 E.U./dL (0.2)
[2024-06-24 15:43] LABS: RBC Urine 5-10/HPF (0-5/HPF); Urine Volume 10mL (spun)
[2024-06-24 15:44] LABS: Bacteria Urine Occasional (0-1); Culture Indicated Urine Cult Not Indicated; Mucus Urine 1+ (Negative); Squamous Epithelial Cell Urine 5-10 /HPF (0-5/HPF); WBC Urine 5-10/HPF (0-5/HPF)
[2024-06-24 16:18] LABS: Urine N gonorrhoeae NOT DETECTED
[2024-06-24 16:19] LABS: Urine Chlamydia NOT DETECTED
[2024-06-24 17:06] LABS: HIV 1 & 2 Ab/Ag 4th Gen Combo NEGATIVE (NEGATIVE); Hep C Virus Ab w/Reflex Quant NEGATIVE s/c (NEGATIVE)
== END ==
PROVIDERS: PCP Family Medicine; Referring Provider Family Medicine; Visit Provider Family Medicine
DX: Z72.51 High risk heterosexual behavior (principal); R30.0 Dysuria
CPT/HCPCS: 36415; 81001; 86803; 87389; 87491; 87591

== ENCOUNTER 2025-02-03 11:17 | Emergency (ER) | payer OTHER, SELFPAY ==
[2025-02-03 11:27] VITALS: BP 145/93; PULSE 79; RESP 16; TEMP 36.8; O2SAT 100; BMI 34.7
--- NOTE | 2025-02-03 11:40 | PC.NURSE ---
Splint unwrapped per PA Siddhartha instructions. Pt reports feeling is starting to come back to fingers
--- NOTE | 2025-02-03 11:49 | DI.RAD.S_ITS ---
PROCEDURE: XR WRIST LT MIN 3V INDICATIONS: left wrist fx Mon; worsening pain TECHNIQUE: 4 views of the wrist were acquired. COMPARISON: None. FINDINGS: Bones: Comminuted and impacted distal radial fracture is seen with fracture line extending to radiocarpal joint space, to 8 mm impaction at fracture site with dorsal and volar displacement of fractured fragments. No other fracture or dislocation. No suspicious bony lesions. Soft tissues: No suspicious soft tissue calcifications. IMPRESSION: Acute comminuted and impacted intra-articular fracture of distal radius as above. Dictated by: Festus Armas M.D. on 02/03/2025 at 12:41 Approved by: Festus Armas M.D. on 02/03/2025 at 12:42
--- NOTE | 2025-02-03 11:49 | DI.RAD.S_ITS ---
PROCEDURE: XR FOREARM LT 2V INDICATIONS: left wrist fx friday worsening pain TECHNIQUE: 2 views of the forearm were acquired. COMPARISON: None. FINDINGS: Bones: Acute comminuted and impacted fracture involving distal radius is seen with fracture line extending to radiocarpal joint space. Up to 8 mm impaction at fracture site is seen. Dorsal and volar displacement of the fractured fragments are also seen. No other fracture or dislocation is noted. Soft tissues: No suspicious soft tissue calcifications or masses. IMPRESSION: Acute comminuted, impacted and displaced intra-articular fracture involving distal radius. No proximal to mid forearm fracture or dislocation. Dictated by: Festus Armas M.D. on 02/03/2025 at 12:39 Approved by: Festus Armas M.D. on 02/03/2025 at 12:41
--- NOTE | 2025-02-03 11:52 | ED.UPPEXIN ---
HPI - Extremity Injury (Upper) <Shahida Carl PA-C - Last Filed: 02/03/25 16:03> General Chief Complaint: Extremity Injury, Upper Stated Complaint: broken L wrist/arm, doesn't feel fingers Time Seen by Provider: 02/03/25 11:43 Mode of arrival: Ambulatory History of Present Illness HPI narrative: Ms. Rich is a pleasant 34-year-old female who broke her left wrist on Friday after falling backwards while practicing roller [employer] in her house, had a reduction and splint at [facility], who now comes to the [facility] emergency department for worsening pain of the left wrist and numbness /tingling of the left hand since this morning. Her primary care doctor is Dr. Spring. patient states she has been attempting to get an appointment with [facility] but has been unsuccessful, and when she attempted to get an appointment with [facility] here in [place] they requested a referral from the ER. Patient has been taking hydrocodone 5 mg without relief of her pain. She was unaware that she could remove her own Germán wrap to loosen the dressing. After her Germán wrap and splint were removed in the emergency department, she immediately developed sensation of her left hand again. Her left forearm compartments are soft, she is very limited range of motion of the left wrist and left hand secondary to pain. Patient states that a sedation reduction was attempted but the ER doctor had told her it was not a perfect reduction and she we will need further management by Orthopedics. Patient denies any new injuries, she took 5 mg hydrocodone 2 hours ago. Related Data Previous Rx's Medication Instructions Recorded escitalopram oxalate 10 mg tablet 10 mg PO DAILY #90 tabs 11/01/24 norgestimate-ethinyl estradiol 1 tab PO DAILY #84 tabs 11/02/24 0.18 mg/0.215mg/0.25mg-35 mcg(28)tablet (Ortho Tri-Cyclen (28)) hydrocodone 5 mg-acetaminophen 325 1 tab PO Q4-6H PRN pain 3 days #12 02/03/25 mg tablet tabs ibuprofen 600 mg tablet 600 mg PO Q8H PRN pain #20 tabs 02/03/25 ondansetron 4 mg disintegrating 4 mg PO Q8H PRN nausea and 02/03/25 tablet vomiting #20 tabs Allergies Allergy/AdvReac Type Severity Reaction Status Date / Time No Known Drug Allergies Allergy Verified 02/03/25 11:27 Review of Systems <Shahida Carl PA-C - Last Filed: 02/03/25 16:03> Review of Systems ROS Unobtainable: All systems reviewed & are unremarkable except as noted in HPI and below Patient History <Shahida Carl PA-C - Last Filed: 02/03/25 16:03> Medical History Anxiety (~2017) Left knee tendonitis Obesity Laceration of right little finger with tendon involvement (~2004) 35 weeks gestation of (~2017) Gestational hypertension (~2018) Gestational diabetes, diet controlled (~2017) Family History Father Cancer Mother Stroke Grandmother Dementia Macular degeneration Grandfather Stroke Grandmother Cancer Crohn disease Grandfather Cancer Sister Cancer Social History marital status: unmarried,living together number of children: 1 household members: significant other and children lives independently: No caregiver/support person: No housing: house pets and animals: Yes (1 dog, 1 cat. ) education level: college occupational status: unemployed current occupational exposures/hazards: No mariam/yazidism: [employer] special mariam needs: No Smoking Status: Never smoker second hand exposure: No alcohol intake: former substance use type: does not use during the past year weight has: remained stable caffeine: No Type(s) of exercise: walking and yoga frequency: daily Smoking Status: Never smoker Exam <Shahida Carl PA-C - Last Filed: 02/03/25 16:03> Narrative Exam Narrative: GENERAL: 34 year old patient appears stated age. Well-developed patient, Visibly uncomfortable due to left wrist pain. HEAD: Atraumatic. Normocephalic. NECK: Trachea midline. Cervical ROM intact. CARDIOVASCULAR: Regular rate RESPIRATORY: Nonlabored respirations. Speaking in clear, full sentences. EXTREMITIES: Diffuse tenderness to palpation of the left wrist and forearm, going up mid ulnar aspect of forearm and especially overlying radial aspect of wrist. Radial pulses palpable and there is brisk capillary refill in the fingers. Extremely limited range of motion of the left wrist secondary to pain. Left wrist and forearm compartments are soft, mild ecchymosis overlying wrist. Sensation intact to light touch in the distribution of the median, radial, ulnar nerves. NEURO: AOx3. Clear speech. SKIN: No open wounds. Initial Vital Signs Initial Vital Signs: Vital Signs Temperature 98.3 F 02/03/25 11:27 Pulse Rate 79 02/03/25 11:27 Respiratory Rate 16 02/03/25 11:27 Blood Pressure 145/93 H 02/03/25 11:27 Pulse Oximetry 100 02/03/25 11:27 Oxygen Delivery Method Room Air 02/03/25 11:27 <Clau Salgado MD - Last Filed: 02/03/25 19:57> Initial Vital Signs Initial Vital Signs: Vital Signs Temperature 98.3 F 02/03/25 11:27 Pulse Rate 79 02/03/25 11:27 Respiratory Rate 16 02/03/25 11:27 Blood Pressure 145/93 H 02/03/25 11:27 Pulse Oximetry 100 02/03/25 11:27 Oxygen Delivery Method Room Air 02/03/25 11:27 Course <Shahida Carl PA-C - Last Filed: 02/03/25 16:03> Orders Ordered: ED Orders 02/03/25 11:49 XR forearm LT 2V Stat XR wrist LT min 3V Stat 02/03/25 14:35 CT UE LT wo con Stat Discontinued Medications Hydrocodone Bitart/Acetaminophen (Hydrocodone/Acet 5/325 Tablet) 1 tab PO NOW ONE Stop: 02/03/25 11:50 Last Admin: 02/03/25 11:57 Dose: 1 tab Documented By: ERVIN Ibuprofen (Ibuprofen 400 Mg Tablet) 400 mg PO NOW ONE Stop: 02/03/25 11:50 Last Admin: 02/03/25 11:58 Dose: 400 mg Documented By: ERVIN Ondansetron HCl (Ondansetron 4 Mg Odt) 4 mg SL NOW ONE Stop: 02/03/25 11:50 Last Admin: 02/03/25 11:58 Dose: 4 mg Documented By: ERVIN Vital Signs Vital signs: Vital Signs - 8 hr 02/03/25 14:48 02/03/25 14:49 Pulse Rate 72 72 Respiratory Rate 16 16 Blood Pressure 139/66 139/66 Pulse Oximetry 100 100 Oxygen Delivery Method Room Air <Clau Salgado MD - Last Filed: 02/03/25 19:57> Orders Ordered: ED Orders 02/03/25 11:49 XR forearm LT 2V Stat XR wrist LT min 3V Stat 02/03/25 14:35 CT UE LT wo con Stat Discontinued Medications Hydrocodone Bitart/Acetaminophen (Hydrocodone/Acet 5/325 Tablet) 1 tab PO NOW ONE Stop: 02/03/25 11:50 Last Admin: 02/03/25 11:57 Dose: 1 tab Documented By: ERVIN Ibuprofen (Ibuprofen 400 Mg Tablet) 400 mg PO NOW ONE Stop: 02/03/25 11:50 Last Admin: 02/03/25 11:58 Dose: 400 mg Documented By: ERVIN Ondansetron HCl (Ondansetron 4 Mg Odt) 4 mg SL NOW ONE Stop: 02/03/25 11:50 Last Admin: 02/03/25 11:58 Dose: 4 mg Documented By: ERVIN Vital Signs Vital signs: Vital Signs - 8 hr 02/03/25 14:48 02/03/25 14:49 Pulse Rate 72 72 Respiratory Rate 16 16 Blood Pressure 139/66 139/66 Pulse Oximetry 100 100 Oxygen Delivery Method Room Air MDM - Extremity Injury (Upper) <Shahida Carl PA-C - Last Filed: 02/03/25 16:03> Medical Records Attestation: I reviewed the patient's medical records. Imaging Data X-Ray left Wrist: Radiologist's Impression: PROCEDURE: XR WRIST LT MIN 3V INDICATIONS: left wrist fx Mon; worsening pain TECHNIQUE: 4 views of the wrist were acquired. COMPARISON: None. FINDINGS: Bones: Comminuted and impacted distal radial fracture is seen with fracture line extending to radiocarpal joint space, to 8 mm impaction at fracture site with dorsal and volar displacement of fractured fragments. No other fracture or dislocation. No suspicious bony lesions. Soft tissues: No suspicious soft tissue calcifications. IMPRESSION: Acute comminuted and impacted intra-articular fracture of distal radius as above. Left Wrist CT Noncontrast: Radiologist's Impression: PROCEDURE: CT UE LT WO CON INDICATIONS: left wrist fx TECHNIQUE: Noncontrast 1 mm axial sections acquired through the carpal bones, with coronal and sagittal reformats. COMPARISON: [facility], CR, XR WRIST LT MIN 3V, 02/03/2025, 11:53. [facility], CR, XR FOREARM LT 2V, 02/03/2025, 11:53. FINDINGS: Image quality: Excellent. Bones: As seen on earlier left wrist radiograph, acute comminuted and impacted fracture involving distal radius is seen. There is up to 1 cm impaction at fracture site. Fracture line is seen extending to radiocarpal joint. Dorsal and volar displacement of fractured fragments are seen. No other fracture or dislocation. No suspicious bony lesions. No evidence of avascular necrosis. Soft tissues: Significant soft tissue swelling surrounding distal radial fracture site is seen with moderate joint effusion, no calcified intra-articular loose bodies. No gross full-thickness extensor or flexor tendon rupture. No abnormal soft tissue calcifications. IMPRESSION: 1. Acute comminuted, impacted and displaced intra-articular fracture involving distal radius as above. 2. No other fracture or dislocation. No evidence of avascular necrosis. 3. Soft tissue swelling surrounding distal radial fracture site with moderate joint effusion. No calcified intra-articular loose bodies. No gross full-thickness wrist tendon rupture. [facility] Narrative Medical decision making narrative: 34-year-old female who broke her left wrist on Friday after falling backwards while practicing roller [employer] in her house, had a reduction and splint at [facility], who now comes to the [facility] emergency department for worsening pain of the left wrist and numbness /tingling of the left hand since this morning. Differential diagnosis includes but is not limited to left wrist fracture, displaced fracture, compartment syndrome, etc. On exam the patient is in no acute distress, nontoxic appearing, vital signs age-appropriate. Records requested from [facility]. Patient's left forearm splint was removed with immediate improvement in her pain and numbness/ tingling however she continues to have significant tenderness with palpation and any slight movement of left wrist consistent with known prior fracture. Physical exam not concerning for compartment syndrome at this time. We will repeat x-ray, treat pain with hydrocodone and ibuprofen, nausea prophylaxis and reassess. Patient's pain improved, she was neurovascularly intact before and after a new sugar-tong left arm splint was applied. Consulted on-call orthopedic surgeon Dr. Infante who recommends outpatient surgical management however this fracture is too complex for himself so he will contact his colleague Dr. Contreras and if he is unable then they will refer patient to [facility]. He did request a CT scan of the left wrist prior to the patient's discharge today which was obtained. CT reveals acute comminuted, impacted and displaced intra-articular fracture involving distal radius. Patient was prescribed hydrocodone, ibuprofen, Zofran, recommended rice therapy, informed patient that she can remove and reapply Germán wrap if needed otherwise return to the emergency department for any concerns. Strict ED return precautions discussed and advised her to call the orthopedic office [place]. Both her and her verbalized understanding of all information agreeable to the plan. She is stable for discharge home. Discharge Plan Departure Patient Disposition: Home Clinical Impression: Fracture of left distal radius Qualifiers: Encounter type: initial encounter Fracture type: closed Fracture morphology: unspecified fracture morphology Qualified Code(s): S52.502A - Unspecified fracture of the lower end of left radius, initial encounter for closed fracture Instructions: DI for Distal Radius Fracture Activity Restrictions/Additional Instructions: Dear Ms. Rich, Thank you for coming to the emergency department. I am sorry that you broke your left wrist on Friday. Today we removed your splint and applied a new one, and we also obtained repeat x-rays which reveal a bad fracture of your distal radius bone. Please call to schedule an appointment with [facility] as soon as possible for follow up. You may call [phone] and request an appointment with Dr. Infante (on-call), or any of the other surgeons. Please use the prescribed ibuprofen in addition to acetaminophen / Tylenol for pain, you may also use the prescribed hydrocodone for severe pain. please be aware that the prescription of hydrocodone -acetaminophen has 325 mg of Tylenol which is equivalent to 1 regular strength Tylenol. You should take a maximum of a 1000 mg of Tylenol every 8 hours. Please use RICE therapy for your pain in addition to ibuprofen/acetaminophen. Rest the painful area. Ice the area of pain/swelling for at least 15 minutes, 4x a day. Compress the area of swelling using a brace, wrap, or splint if applied. Elevate the painful or swollen extremity by supporting it above the level of the heart with pillows when sitting or laying. Please keep the splint dry, remove the Germán wrap if it is too tight, but return to the emergency department if you develop severe pain, numbness tingling weakness or color change. You have been prescribed a short course of narcotic medications. These are potentially dangerous and addictive medications that should be used carefully. While on these medications you cannot drive or operate heavy machinery. Additionally, you cannot sign legal documents or perform any duties such as this. Many people get constipated on narcotic medications so it would be advisable to discuss stool softeners with the pharmacist when you hot die picker your prescription. Please understand that we cannot provide further refills of narcotics or controlled substances through the ED and your pain management will need to be through your Primary Care Provider Please follow up with your primary care doctor within the next 2-3 days for ER follow-up. (If you do not have a PCP you can call [phone]. to schedule an appointment with an [facility] Primary Care Provider) IF YOU DEVELOP ANY NEW OR WORSENING SYMPTOMS, RETURN TO THE ER! Please read the attached instructions, they highlight more specific treatments and interventions for you at home. Thank you for letting me participate in your care, Shahida Carl PA-C Prescriptions: New hydrocodone-acetaminophen 5-325 mg tablet 1 tab PO Q4-6H PRN (Reason: pain) 3 Days Qty: 12 0RF ondansetron 4 mg tablet,disintegrating 4 mg PO Q8H PRN (Reason: nausea and vomiting) Qty: 20 0RF ibuprofen 600 mg tablet 600 mg PO Q8H PRN (Reason: pain) Qty: 20 0RF No Action escitalopram oxalate 10 mg tablet 10 mg PO DAILY Qty: 90 1RF norgestimate-ethinyl estradiol [Ortho Tri-Cyclen (28)] 0.18/0.215/0.25 mg-35 mcg (28) tablet 1 tab PO DAILY Qty: 84 5RF Referrals: Joseph Spring MD [Primary Care Provider] - Chas Infante MD [Physician] - (Left acute comminuted and impacted intra-articular fracture of distal radius. Reduced at [facility] on Friday but came to [place] today for worsening pain. Splint was removed and new splint applied, pt would like to follow up with your office for further management ) Stand Alone Forms: Patient Portal/API/Survey ED Sign-out <Clau Salgado MD - Last Filed: 02/03/25 19:57> Cosign ED Attending Cosignature Attestation: I was immediately available in the department for consultation throughout this patient's visit. Clau Salgado MD
[2025-02-03] MEDS: HYDROCODONE/ACET 5/325 TABLET 1 TAB PO (11:57)
[2025-02-03] MEDS: IBUPROFEN 400 MG TABLET PO (11:58)
[2025-02-03] MEDS: ONDANSETRON 4 MG ODT SL (11:58)
--- NOTE | 2025-02-03 14:35 | DI.CT.S_ITS ---
PROCEDURE: CT UE LT WO CON INDICATIONS: left wrist fx TECHNIQUE: Noncontrast 1 mm axial sections acquired through the carpal bones, with coronal and sagittal reformats. COMPARISON: [facility], CR, XR WRIST LT MIN 3V, 02/03/2025, 11:53. [facility], CR, XR FOREARM LT 2V, 02/03/2025, 11:53. FINDINGS: Image quality: Excellent. Bones: As seen on earlier left wrist radiograph, acute comminuted and impacted fracture involving distal radius is seen. There is up to 1 cm impaction at fracture site. Fracture line is seen extending to radiocarpal joint. Dorsal and volar displacement of fractured fragments are seen. No other fracture or dislocation. No suspicious bony lesions. No evidence of avascular necrosis. Soft tissues: Significant soft tissue swelling surrounding distal radial fracture site is seen with moderate joint effusion, no calcified intra-articular loose bodies. No gross full-thickness extensor or flexor tendon rupture. No abnormal soft tissue calcifications. IMPRESSION: 1. Acute comminuted, impacted and displaced intra-articular fracture involving distal radius as above. 2. No other fracture or dislocation. No evidence of avascular necrosis. 3. Soft tissue swelling surrounding distal radial fracture site with moderate joint effusion. No calcified intra-articular loose bodies. No gross full-thickness wrist tendon rupture. Dictated by: Festus Armas M.D. on 02/03/2025 at 15:25 Approved by: Festus Armas M.D. on 02/03/2025 at 15:27
[2025-02-03 14:48] VITALS: BP 139/66; PULSE 72; RESP 16; O2SAT 100
[2025-02-03 14:49] VITALS: BP 139/66; PULSE 72; RESP 16; O2SAT 100
== END 2025-02-03 14:51 | disposition home or self-care (01) ==
PROVIDERS: Emergency Provider Physician Assistant; PCP Family Medicine
DX: S52.502A Unspecified fracture of the lower end of left radius, initial encounter for closed fracture (principal); W18.30XA Fall on same level, unspecified, initial encounter; Y93.51 Activity, roller skating (inline) and skateboarding
CPT/HCPCS: 73090; 73110; 73200; 99283; 99284